=== PATIENT | male | born 1965 | race Caucasian/White ===

== ENCOUNTER 2020-05-23 10:41 | Day surgery (SDC) | payer OTHER, SELFPAY ==
[2020-03-20 10:56] VITALS: BMI 29.9
--- NOTE | 2020-03-25 09:36 | HO.ANESPROP2 ---
HPI - Anesthesia Eval Consult details Narrative: 55yo M for Colonoscopy [facility] Past Medical History Medical History Asthma Hepatitis History of prostate cancer Hx of irritable bowel syndrome Hx of radiation therapy Surgical History Surgical History H/O colonoscopy History of surgery on arm Hx of prostate biopsy Hx of right inguinal hernia repair Social History Social History Smoking Status: Current every day smoker Meds Allergies Allergy/AdvReac Type Severity Reaction Status Date / Time No Known Allergies Allergy Verified 03/20/20 11:02 Home Medications Medication Instructions Recorded Confirmed Type buprenorphine-naloxone [Suboxone] 1 film BUCCAL BID 03/20/20 03/20/20 History glecaprevir-pibrentasvir [Mavyret] 3 tab PO DAILY 03/20/20 03/20/20 History tadalafil 20 mg PO DAILY 03/20/20 03/20/20 History Exam Exam Date and Time: March 25, 2020 0936 Height,Weight and Vital Signs: Height 5 ft 7 in Weight 86.636 kg Assessment and Plan Assessment Anesthesia Assessment: Chart Reviewed
--- NOTE | 2020-05-21 14:19 | HO.ANESPROP2 ---
Documented by User: Salma Galvin 05/21/20 14:19 HPI - Anesthesia Eval Consult details Narrative: 55yo M for Colonoscopy [facility] Past Medical History Medical History Asthma Hepatitis History of prostate cancer Hx of irritable bowel syndrome Hx of radiation therapy Surgical History Surgical History H/O colonoscopy History of surgery on arm Hx of prostate biopsy Hx of right inguinal hernia repair Social History Social History Smoking Status: Current every day smoker Cigarettes Per Day: 5 Advance Directives Information Provided: No Meds Allergies Allergy/AdvReac Type Severity Reaction Status Date / Time No Known Allergies Allergy Verified 03/20/20 11:02 Home Medications Medication Instructions Recorded Confirmed Type glecaprevir-pibrentasvir [Mavyret] 3 tab PO DAILY 03/20/20 03/20/20 History tadalafil 20 mg PO DAILY 03/20/20 03/20/20 History lisinopril 1 tab PO DAILY 05/23/20 05/23/20 History methadone 50 mg PO DAILY 05/23/20 05/23/20 History Exam Exam Date and Time: May 21, 2020 1419 Height,Weight and Vital Signs: Height 5 ft 7 in Weight 86.636 kg Assessment and Plan Assessment Anesthesia Assessment: Chart Reviewed Documented by User: Minnie Kate 05/23/20 11:17 [facility] Past Medical History Medical History Asthma Hepatitis History of prostate cancer Hx of irritable bowel syndrome Hx of radiation therapy Surgical History Surgical History H/O colonoscopy History of surgery on arm Hx of prostate biopsy Hx of right inguinal hernia repair Social History Social History Smoking Status: Current every day smoker Cigarettes Per Day: 5 Advance Directives Information Provided: No Meds Allergies Allergy/AdvReac Type Severity Reaction Status Date / Time No Known Allergies Allergy Verified 03/20/20 11:02 Home Medications Medication Instructions Recorded Confirmed Type glecaprevir-pibrentasvir [Mavyret] 3 tab PO DAILY 03/20/20 03/20/20 History tadalafil 20 mg PO DAILY 03/20/20 03/20/20 History lisinopril 1 tab PO DAILY 05/23/20 05/23/20 History methadone 50 mg PO DAILY 05/23/20 05/23/20 History Exam Airway Mallampati Class: II TM Dist: >3cm Neck ROM: Full Assessment and Plan Assessment Anesthesia Assessment: Anesthesia Plan Discussed and Chart Reviewed Final Anesthetic Review NPO: Yes ASA Class: II Final Preanesthetic Review: No Changes in Pt Med Stat, Meds/Allgs Chart Reviewed, Consent Obtained/Reviewed and Anes Risks/Benef Reviewed Patient Risk: Low Procedure Risk: Low Assessment/Block/Sedation in SS: Assess/Block/Sedation-SS Anesthetic Plan Anesthetic Plan: MAC: Disposition: Standard PACU
[2020-05-23 10:54] VITALS: BP 157/100; PULSE 97; RESP 18; TEMP 36.6; O2SAT 98
[2020-05-23] MEDS: Lactated Ringers 1,000 ML 100 ML IVCONT (11:09)
--- NOTE | 2020-05-23 11:17 | MHC.SHP ---
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 Hep C ab + viral load neg since 2019 Relevant Family History (Specify if Yes): Yes Relevant Social History: Tobacco Use (5 or less) Present Medications: see Short Stay Collaborative assessment Medical History: Significant History (Prostate cancer,Hx tubular adenomas;hx of Hepatitis c) History of Previous Operations: No relevant previous surgery Allergies: Allergies Allergy/AdvReac Type Severity Reaction Status Date / Time No Known Allergies Allergy Verified 03/20/20 11:02 Review of Systems Sugical H&P ROS: Negative: Constitution, Cardiovascular, Respiratory and Gastrointestinal and Yes, Specify: Psychiatric (on methadone) Exam Surgical H&P Exam: Normal: HEENT, Normal: Heart, Normal: Lungs, Normal: Extremities and Normal: Abdomen Plan Diagnosis/Plan: Unchanged I have reviewed the history and physical and performed a pertinent physical examination on my patient. No changes have occurred unless specified.yes
[2020-05-23 12:31] VITALS: BP 122/82; PULSE 86; RESP 16; TEMP 36.2; O2SAT 95
--- NOTE | 2020-05-23 12:34 | PM.PROC ---
Brief Operative Note Date of procedure: 05/23/20 Pre-op diagnosis: hX MACHO TUBULAR ADENOMAS Procedure: COLONOSCOPY WITH EXCIS POLYPX2, CSPX1, BX ENDO MARKING. Anesthesia: MAC (MACEY GLEASON) Surgeon: Tran Murguia Pathology: other (CECAL, ? POLYP, BX RESIDUAL AREA) Condition: stable Disposition: PACU
[2020-05-23 12:46] VITALS: BP 154/99; RESP 17; O2SAT 97
--- NOTE | 2020-05-23 13:04 | HO.POSTANES ---
Post Anesthesia Evaluation Post Anesthesia Evaluation Vital Signs: Vital Signs Temp Pulse Resp BP Pulse Ox 05/23/20 12:46 17 154/99 H 97 05/23/20 12:31 97.1 F 86 16 122/82 95 05/23/20 10:54 97.8 F 97 18 157/100 H 98 Anesthesia: Monitored Mental Status: Awake Pain Control: Satisfactory Nausea/Vomiting: None Hydration: Adequate Anesthesia-Related Issues: No Anes. Related Issues
--- NOTE | 2020-05-25 12:22 | OP_ITS ---
SURGEON: Tran Murguia MD PREOPERATIVE DIAGNOSIS: The patient has a history of tubular adenomas. ESTIMATED BLOOD LOSS: Less than 10 mL. COMPLICATIONS: No complications. ANESTHESIA: Monitored. ASSISTANTS: No ward assistant. SPECIMENS: Specimens removed; cecal polyps x2, ascending colon polyp shreds, not clear that the polyp itself was retrieved and an additional biopsy in same area. POSTOPERATIVE DIAGNOSES: Colonic polyps, 2+ internal hemorrhoids. RIVET TAPPING MACHINE OPERATOR: Dr. Murguia. PROCEDURE PERFORMED: Colonoscopy with excisional polypectomy x2 with the use of the cold biopsy forceps, endo marking and cold snare polypectomy x1. Endo marking was done in the region of the ascending colon polyp. CONDITION: Postop, stable. FINDINGS: Digital rectal exam revealed no specific lesion. Video colonoscope was introduced without difficulty. It was navigated into the rectosigmoid, sigmoid, on up through descending, transverse, ascending colon down into the cecum. Prep was good. There was moderate amount of flushing and some residual fluid. Two polyps were identified in the cecum. These were removed. There was ascending colon polyp that was not retrieved. The suctioned fluid was submitted as a question of fragmented polyp. Adjacent to this, there was questionable serrated changes and this was biopsied. In the mid transverse colon, a polyp was seen, however despite the use of glucagon as well as re-looking at the area multiple times, this was not re-visualized, estimated size of this was 2 to 3 mm. Anorectal verge was clear. There were 2+ internal hemorrhoids noted. PLAN: This patient's repeat colonoscopy should be in 3 years. I would suggest a vigorous 2-day prep to clear out any fluid, and if spasm persists, the use of glucagon would be recommended as well. I will review the histological findings from the path report and make any appropriate adjustments. He will be either seen in followup by either Televisit or in-person. ANESTHESIOLOGISTS: Dr. Kate/Jb Escobar CRNA. GRAFT OR IMPLANTS: No grafts or implants. Tran Murguia MD MEN/MODL / [id number] ARSENIO
== END 2020-05-23 13:07 | disposition home or self-care (01) ==
PROVIDERS: PCP Internal Medicine; Visit Provider Internal Medicine Gastroenterology
PROC: 0DJD8ZZ Inspection of Lower Intestinal Tract, Via Natural or Artificial Opening Endoscopic (ICD-10-PCS; CPT 45378; principal; 2020-05-23 12:10)
DX: Z12.11 Encounter for screening for malignant neoplasm of colon (principal); Z86.010 Personal history of colon polyps; D12.0 Benign neoplasm of cecum; D12.2 Benign neoplasm of ascending colon; K64.8 Other hemorrhoids; J45.909 Unspecified asthma, uncomplicated; B19.20 Unspecified viral hepatitis C without hepatic coma; Z79.899 Other long term (current) drug therapy; F11.90 Opioid use, unspecified, uncomplicated; Z85.46 Personal history of malignant neoplasm of prostate; Z92.3 Personal history of irradiation; F17.210 Nicotine dependence, cigarettes, uncomplicated
CPT/HCPCS: 45385; 45380; 45381; 88305; J1610

== ENCOUNTER → 2020-06-06 10:34 | Outpatient (BNVA) | payer OTHER, SELFPAY | PROVIDERS: PCP Internal Medicine; Visit Provider Nurse Practitioner ==

== ENCOUNTER 2020-06-13 08:18 | Outpatient (REF) | payer OTHER, SELFPAY ==
[2020-06-13 09:05] LABS: MANUAL DIFF FLAG NO
[2020-06-13 09:09] LABS: Basophils Absolute Auto 0.1 X10*3/uL (0.0-0.2); Basophils Percent Auto 0.7 % (0-2); Eosinophils Absolute Auto 0.2 X10*3/uL (0.0-0.4); Eosinophils Percent Auto 2.3 % (0-4); Hematocrit 44.1 % (42-52); Hemoglobin 14.5 g/dl (14.0-18.0); Imm Gran Abs Auto 0.03 X10*3/uL (0.00-0.03); Imm Gran Pct Auto 0.3 % (0.0-0.4); Lymphocytes Absolute Auto 4.1 X10*3/uL (1.2-4.9); Lymphocytes Percent Auto 40.1 % (20-40); Mean Corpuscular HGB Conc 32.9 g/dl (31.0-36.0); Mean Corpuscular Hemoglobin 29.4 pg (27.0-33.0); Mean Corpuscular Volume 89.5 fL (80-98); Mean Platelet Volume 10.4 fL (9.4-12.4); Monocytes Absolute Auto 0.9 X10*3/uL (0.1-1.2); Neutrophils Absolute Auto 4.9 X10*3/uL (2.0-8.3); Neutrophils Percent Auto 47.6 % (45-73); Platelet Count 289 X10*3/uL (160-400); Red Blood Count 4.93 X10*6/uL (4.60-5.80); Red Cell Distribution Width 13.4 % (11.0-16.0); White Blood Count 10.3 X10*3/uL (4.8-10.8)
[2020-06-13 09:47] LABS: Alanine Aminotransferase 38 U/L (0-40); Albumin Level 4.6 g/dL (3.5-5.0); Alkaline Phosphatase 65 U/L (39-117); Anion Gap 13 (12-20); Aspartate Amino Transferase 33 U/L (5-37); Bilirubin Total 0.6 mg/dL (0.0-1.0); Blood Urea Nitrogen 20 mg/dL (9-16); Calcium 9.4 mg/dL (8.4-10.2); Carbon Dioxide 28 mmol/L (22-29); Chloride 104 mmol/L (96-108); Cholesterol 148 mg/dL; Estimated Glomerular Filt Rate > 60; Glucose Fasting 115 mg/dL (60-99); HDL Cholesterol 25 mg/dL; LDL Cholesterol Calculated 81 mg/dl; Potassium 4.2 mmol/l (3.3-5.1); Sodium 141 mmol/L (135-145); Total Protein 7.8 g/dL (6.5-8.0); Triglycerides 214 mg/dL
[2020-06-13 10:00] LABS: TSH reflex Free T4 1.45 mIU/mL (0.32-4.0)
[2020-06-13 11:01] LABS: Folate 7.7 ng/mL (> or = 4.0); Vitamin B12 411 pg/mL (200-900)
== END 2020-06-13 08:19 | disposition home or self-care (01) ==
LOC: HO.LAB 08:18
PROVIDERS: Visit Provider Internal Medicine
DX: E66.3 Overweight (principal); I10 Essential (primary) hypertension; R41.3 Other amnesia
CPT/HCPCS: 36415; 80053; 80061; 82607; 82746; 84443; 85025

== ENCOUNTER 2020-09-26 05:56 | Outpatient (REF) | payer OTHER, SELFPAY ==
[2020-09-26 07:09] LABS: Glucose Urine UA NEG (NEG); Leukocyte Esterase Urine NEG (NEG); Nitrite Urine NEG (NEG); Specific Gravity - Urine >= 1.030 (1.005-1.025); Urine Blood TRACE (NEG); Urine Ketones NEG (NEG); Urine Protein NEG (NEG-TRACE)
[2020-09-26 07:17] LABS: Appearance Urine CLEAR; Color Urine YELLOW
[2020-09-26 07:30] LABS: Mucus Urine 1+ /LPF; Squamous Epithelial Cell Urine TRACE /LPF; WBC Urine 0-2 /HPF (0-4)
[2020-09-26 08:26] LABS: PSA,Total (Free>4and<10) 1.17 ng/mL (0.00-4.00)
== END 2020-09-26 05:57 | disposition home or self-care (01) ==
LOC: HO.LAB 05:56
PROVIDERS: PCP Internal Medicine; Visit Provider Urology
DX: Z12.5 Encounter for screening for malignant neoplasm of prostate (principal); C61 Malignant neoplasm of prostate; I10 Essential (primary) hypertension
CPT/HCPCS: 36415; 81001; 81003; 84153

== ENCOUNTER → 2020-12-20 10:24 | Outpatient (BNVA) | payer OTHER, SELFPAY | PROVIDERS: Visit Provider Urology ==

== ENCOUNTER → 2021-02-19 10:55 | Outpatient (BNVA) | payer OTHER, SELFPAY | PROVIDERS: PCP Internal Medicine; Referring Provider Internal Medicine; Visit Provider Surgery | DX: R10.31 Right lower quadrant pain (principal) | CPT/HCPCS: 99212 ==

== ENCOUNTER 2021-02-19 11:37 | Outpatient (REF) | payer OTHER, SELFPAY | END 2021-02-19 11:38 | disposition home or self-care (01) | LOC: HO.LAB 11:37 | PROVIDERS: Visit Provider Internal Medicine | DX: Z20.822 Contact with and (suspected) exposure to COVID-19 (principal) | CPT/HCPCS: C9803; U0003; U0005 ==

== ENCOUNTER 2021-03-20 08:38 | Outpatient (REF) | payer OTHER, SELFPAY | END 2021-03-20 08:39 | disposition home or self-care (01) | LOC: HO.CT 08:38 | PROVIDERS: PCP Internal Medicine; Visit Provider Surgery | DX: Z13.89 Encounter for screening for other disorder (principal) ==

== ENCOUNTER 2021-03-21 08:44 | Outpatient (REF) | payer OTHER, SELFPAY ==
--- NOTE | ~2021-03-21 | CT_ITS ---
EXAMINATION: CT ABDOMEN AND PELVIS WITHOUT CONTRAST CLINICAL INFORMATION: Right lower quadrant pain COMPARISON: Previous CT of the abdomen and pelvis February 2013 TECHNIQUE: Multidetector volumetric imaging was performed from the superior aspect of the liver through the pubic symphysis. Sagittal and coronal reformatted images were obtained on the technologist's workstation. This CT examination was performed using dose optimization techniques as appropriate, variously including the following: *Automated exposure control *Adjustment of mA and/or kV according to patient size (this includes techniques or standardized protocols for targeted exams where dose is matched to indication/reason for exam; i.e. extremities or head) *Use of iterative reconstruction technique DLP: 522 mGy-cm FINDINGS: LUNG BASES: The visualized lung bases are unremarkable. LIVER, GALLBLADDER, AND BILIARY TREE: The liver is normal in size, shape, and attenuation. No focal hepatic lesion or biliary ductal dilatation is present. The gallbladder is unremarkable with no evidence of radiopaque gallstones, gallbladder wall thickening, or obvious pericholecystic inflammatory changes. PANCREAS: Unremarkable. SPLEEN: Unremarkable. ADRENAL GLANDS: Unremarkable. KIDNEYS AND URETERS: The kidneys are normal in size, shape, and attenuation. No hydronephrosis, hydroureter, or calculi seen. No perinephric stranding. BLADDER: There may be mild diffuse bladder wall thickening. Bladder is otherwise unremarkable. GASTROINTESTINAL TRACT: There is diverticulosis of the colon. No evidence of diverticulitis is seen. The small and large bowel are otherwise unremarkable. The appendix is unremarkable. There is trace ascites seen in the right abdomen inferior to the liver. ABDOMINAL WALL: No significant hernia is appreciated. LYMPH NODES: Normal. VASCULAR: Unremarkable. PELVIC VISCERA: There are radiation seeds in the prostate gland. No pelvic mass or adenopathy is seen. There may be a small right hydrocele. OSSEOUS STRUCTURES: There are degenerative changes of the spine. There is a small sclerotic lesion in the right pubic symphysis and left femoral head that are stable from 2012 and probably represent bone islands. CT/CT abdomen pelvis wo con IMPRESSION: Radiation seeds in the prostate gland. Mild diffuse bladder wall thickening. Mild diverticulosis of the colon. No evidence of diverticulitis. Normal-appearing appendix. Question right hydrocele.
== END 2021-03-21 08:45 | disposition home or self-care (01) ==
LOC: HO.CT 08:44
PROVIDERS: PCP Internal Medicine; Visit Provider Surgery
DX: R10.31 Right lower quadrant pain (principal)
CPT/HCPCS: 74176

== ENCOUNTER → 2021-04-09 08:02 | Outpatient (BNVA) | payer OTHER, SELFPAY | PROVIDERS: PCP Internal Medicine; Referring Provider Internal Medicine; Visit Provider Surgery | DX: R10.31 Right lower quadrant pain (principal) | CPT/HCPCS: 99212 ==

== ENCOUNTER 2022-01-28 07:12 | Outpatient (REF) | payer MEDICARE, MEDICAID, SELFPAY ==
[2022-01-28 07:24] LABS: MANUAL DIFF FLAG NO
[2022-01-28 07:41] LABS: Basophils Absolute Auto 0.1 X10*3/uL (0.0-0.2); Basophils Percent Auto 0.6 % (0-2); Eosinophils Absolute Auto 0.2 X10*3/uL (0.0-0.4); Eosinophils Percent Auto 1.9 % (0-4); Hematocrit 42.7 % (42.0-52.0); Hemoglobin 14.5 g/dl (14.0-18.0); Imm Gran Abs Auto 0.04 X10*3/uL (0.00-0.03); Imm Gran Pct Auto 0.4 % (0.0-0.4); Lymphocytes Absolute Auto 3.1 X10*3/uL (1.2-4.9); Lymphocytes Percent Auto 33.5 % (20-40); Mean Corpuscular Hemoglobin 29.7 pg (27.0-33.0); Mean Corpuscular Volume 87.5 fL (80.0-98.0); Mean Platelet Volume 9.4 fL (9.4-12.4); Monocytes Absolute Auto 0.8 X10*3/uL (0.1-1.2); Monocytes Percent Auto 8.7 % (2-11); Neutrophils Absolute Auto 5.1 x10*3/uL (2.0-8.3); Neutrophils Percent Auto 54.9 % (45-73); Platelet Count 277 X10*3/uL (160-400); Red Blood Count 4.88 X10*6/uL (4.60-5.80); Red Cell Distribution Width 13.5 % (11.0-16.0); White Blood Count 9.3 X10*3/uL (4.8-10.8)
[2022-01-28 08:06] LABS: Alanine Aminotransferase 58 U/L (0-40); Albumin Level 4.4 g/dL (3.5-5.0); Alkaline Phosphatase 78 U/L (39-117); Anion Gap 16 (12-20); Aspartate Amino Transferase 44 U/L (5-37); Bilirubin Total 0.5 mg/dL (0.0-1.0); Blood Urea Nitrogen 14 mg/dL (9-16); Calcium 9.6 mg/dL (8.4-10.2); Carbon Dioxide 27 mmol/L (22-29); Chloride 102 mmol/L (96-108); Cholesterol 159 mg/dL; Estimated Glomerular Filt Rate > 60; Glucose Fasting 100 mg/dL (60-99); HDL Cholesterol 23 mg/dL; LDL Cholesterol Calculated 83 mg/dl; Potassium 3.9 mmol/L (3.3-5.1); Sodium 141 mmol/L (135-145); Total Protein 7.7 g/dL (6.5-8.0); Triglycerides 269 mg/dL
[2022-01-28 08:20] LABS: Prostate Specific Antigen 1.46 ng/mL (<0.05-4.0); TSH reflex Free T4 3.71 uIU/mL (0.32-4.0); Vitamin D 25-OH Total 34.3 ng/mL (>30)
[2022-01-28 08:56] LABS: Appearance Urine Clear; Color Urine Yellow; Glucose Urine UA Negative (Negative); Leukocyte Esterase Urine Negative (Negative); Nitrite Urine Negative (Negative); Specific Gravity - Urine 1.025 (1.005-1.025); UMIC TRIGGER UACC YES; Urine Blood Trace (Negative); Urine Ketones Negative (Negative); Urine Protein Negative (Neg-Trace)
[2022-01-28 09:02] LABS: Bacteria Urine None Seen (None Seen); Hyaline Casts Urine 0-2 /LPF (0-2); Squamous Epithelial Cell Urine 0-2 /HPF (0-2); WBC Urine 0-5 /HPF (0-5)
== END 2022-01-28 07:13 | disposition home or self-care (01) ==
LOC: HO.LAB 07:12
PROVIDERS: PCP Internal Medicine; Visit Provider Internal Medicine
DX: Z00.00 Encounter for general adult medical examination without abnormal findings (principal); Z12.5 Encounter for screening for malignant neoplasm of prostate; I10 Essential (primary) hypertension; N40.0 Benign prostatic hyperplasia without lower urinary tract symptoms; E78.00 Pure hypercholesterolemia, unspecified; E55.9 Vitamin D deficiency, unspecified
CPT/HCPCS: 36415; 80053; 80061; 81001; 81003; 82306; 84153; 84443; 85025

== ENCOUNTER 2022-08-03 07:50 | Outpatient (REF) | payer OTHER, SELFPAY ==
[2022-08-03 09:24] LABS: Appearance Urine Clear; Color Urine Yellow; Glucose Urine UA Negative (Negative); Leukocyte Esterase Urine Negative (Negative); Nitrite Urine Negative (Negative); PH 6.5 (5.0-9.0); Urine Blood Negative (Negative); Urine Ketones Negative (Negative); Urine Protein Negative (Neg-Trace)
== END 2022-08-03 07:51 | disposition home or self-care (01) ==
LOC: HO.LAB 07:50
PROVIDERS: PCP Internal Medicine; Visit Provider Internal Medicine
DX: Z00.00 Encounter for general adult medical examination without abnormal findings (principal); I10 Essential (primary) hypertension
CPT/HCPCS: 81003

== ENCOUNTER 2022-08-18 12:54 | Outpatient (REF) | payer OTHER, SELFPAY ==
--- NOTE | ~2022-08-18 | US_ITS ---
EXAMINATION: US SCROTUM CLINICAL INFORMATION: Swelling of right testicle. History of prostate cancer. COMPARISON: None available. TECHNIQUE: A sonogram of the scrotum was performed assessing garcia-scale appearance and color Doppler flow. Spectral Doppler analysis of the arterial and venous flow were performed in the testes bilaterally. FINDINGS: RIGHT: Right testicle measures 4.3 x 2.6 x 2.7 cm, volume 15.9 mL. No suspicious focal testicular parenchymal lesions are visualized. There is a 1 mm echogenic focus consistent with calculus. Spectral Doppler analysis of the arterial and venous flow is normal in the right testis. Right epididymal head is is not identified. No right varicocele is seen. Right epididymal Doppler flow is normal. Large right hydrocele present. A scrotal jacquelyn is present. LEFT: Left testicle measures 4.2 x 2.5 x 3.0 cm, volume 16.4 mL. No focal testicular parenchymal lesions are visualized. Spectral Doppler analysis of the arterial and venous flow is normal in the left testis. Left epididymal head is normal in size. No left hydrocele or varicocele is seen. Left epididymal Doppler flow is normal. Appendix testis noted. US/US scrotum IMPRESSION: Large right hydrocele.
== END 2022-08-18 12:55 | disposition home or self-care (01) ==
LOC: HO.US 12:54
PROVIDERS: PCP Internal Medicine; Visit Provider Internal Medicine
DX: N50.89 Other specified disorders of the male genital organs (principal)
CPT/HCPCS: 76870

== ENCOUNTER 2023-02-26 10:37 | Outpatient (AMB) | payer OTHER, SELFPAY ==
[2023-02-26 10:55] VITALS: BP 148/94; PULSE 81; RESP 17; O2SAT 98; BMI 25.5
--- NOTE | 2023-02-26 10:55 | MHC.PC.OV ---
Vital Signs 02/26/23 10:55 Height 5 ft 7 in Weight 163 lb BMI 25.5 BP 148/94 H Blood Pressure Location Lt brachial Position Sitting Respiration 17 Pulse 81 Pulse Source Pulse Oximeter Pulse Oximetry (%) 98 Oxygen Delivery Method Room Air Intake Visit Reasons: PE Intake Note: Patient is here today for a physical. 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: No Accompanied by: Spouse Allergies No Known Allergies Allergy (Verified 02/26/23 11:22) Medication List - Last Reconciled 02/26/23 by Bartolo Dumont MD lisinopril 5 mg PO DAILY 90 days methadone 50 mg PO DAILY Tobacco use date assessed: 08/04/22 Dental Screening Dental Screen Date: 02/26/23 Did you have a dental visit in the last 12 months?: Yes Did you have a dental problem in the last 6 months where you did not have access to dental care?: No Was dental information given to patient?: Patient has dentist HPI PE HPI Details Patient comes in today for his annual physical examination States that he has been experiencing a lot of recurrent diffuse abdominal pain lately Has been seeing urology in [place] regularly for follow up of his prostate cancer and he has been reportedly advised recently that his prostate cancer may have recurred and is being sent for a repeat PET scan, which is presently still awaiting scheduling He denies any nausea or vomiting; relates (+) epigastric pain especially in the morning when he wakes up and notes that these will ease up slightly only after he drinks some coffee States that he always feel that he does not have much of an appetite and usually does not eat much during mealtimes He denies any constipation even though he is on Methadone daily - denies any change in bowel habits lately that may be related to his abdominal pain He denies any headaches or dizziness; denies any fever or sore throat His states that he's had a recurrent cough for over a week now Notes that his cough seem worse at night and he admits to coughing up some thick whitish phlegm at times, and also has some chest congestion occasionally but denies any SOB or chest pains He continues to smoke but he states that he smokes only a few sticks a day, sometimes just 1 cigarette daily He last had his colonoscopy done in May [address] Murguia and was advised then that he should get this rechecked in 3 years [facility] Medical History (Updated 02/26/23 @ 12:33 by Bartolo Dumont MD) Right groin pain Memory loss Overweight Smoker History of hepatitis C History of substance abuse Recurrent prostate cancer (~2019) Benign essential hypertension Hx of radiation therapy History of prostate cancer Hx of irritable bowel syndrome Hepatitis Asthma Surgical History (Updated 02/26/23 @ 12:20 by Bartolo Dumont MD) History of surgery on arm Hx of prostate biopsy Hx of right inguinal hernia repair H/O colonoscopy Family History Brother Prostate cancer Mother Diabetes Social History Housing: Apartment Alcohol intake: current Alcohol intake frequency: holidays/special occasions only Patient Tobacco Use Status: Current everyday Tobacco user Tobacco use type: Cigarette Cigarettes Per Day: 3 e-Cigarette/Vaping Use: Never Used Substance Use Type: Marijuana service: No Current occupational status: disabled Cognitive needs: No Hearing needs: Yes Vision needs: Yes Questionnaire PHQ-9 Over the last 2 weeks, how often have you been bothered by any of the following problems? Depression Screening Interpretation: Negative Depression Screening Done: Yes Source: Developed by Drs. Jamal Grove, Antionette Baca, Compa Diaz and colleagues, with an educational nikki from [employer]. Thrive Questionnaire Date Thrive assessed: 08/04/22 Currently or been in a relationship where the following occur: no concerns reported MERCEDES-7 AMB Questionnaire MERCEDES-7 Date MERCEDES - 7 assessed: 08/04/22 Source: Developed by Drs. Jamal Grove, Antionette Baca, Compa Diaz and colleagues, with an educational nikki from [employer]. Review of Systems Const Denies chills, Reports fatigue, Denies fever(s), Denies headache(s), Denies malaise and Denies weakness Eyes Denies blurry vision, Denies change in vision, Denies irritation and Denies itchy eyes ENT Denies dysphagia, Denies dizziness, Denies otalgia, Denies headache(s), Denies nasal congestion, Denies neck pain, Denies odynophagia and Denies sore throat Card Denies chest pain, Denies rapid heart rate, Denies irregular heart rhythm, Denies palpitations and Denies dyspnea Resp Reports chest congestion (occasionally), Reports cough (recurrent for the past week or so), Denies hemoptysis, Denies pain on inspiration, Denies pain with cough, Denies dyspnea and Denies wheezing GI Reports abdominal pain (diffuse lately; over epigastric area in AM (see HPI)), Reports bloating (at times), Denies constipation, Denies dysphagia, Denies heartburn, Denies diarrhea, Denies nausea, Denies odynophagia and Denies vomiting Denies hematuria, Denies difficulty urinating, Denies dysuria, Denies urinary frequency and Denies urinary urgency Musc Denies back pain, Denies arthralgias, Denies joint swelling, Denies muscle weakness and Denies neck pain Skin/Breast Denies change in pigmentation, Denies lesions, Denies rash and Denies unusual bruising Neuro Denies dizziness, Denies headache(s), Denies paresthesias and Denies weakness Endo Reports fatigue and Denies palpitations Aller/Immun Denies itchy eyes and Denies wheezing Physical exam (Primary Care) Vital Signs: Last Vital Signs Pulse 81 02/26/23 10:55 Resp 17 02/26/23 10:55 BP 148/94 H 02/26/23 10:55 Pulse Ox 98 02/26/23 10:55 Oxygen Delivery Method Room Air 02/26/23 10:55 BMI result Body Mass Index 25.5 Tobacco/Smoking Status: Tobacco use Status Tobacco use date assessed 08/04/22 02/26/23 10:59 Patient Tobacco Use Status Current everyday Tobacco 02/26/23 10:59 Tobacco use type Cigarette 02/26/23 10:59 e-Cigarette/Vaping Use Never Used 02/26/23 10:59 Depression Screening Interpretation: Negative Thrive Assessment: Date of Thrive Assessment Date Thrive assessed 08/04/22 02/26/23 10:59 Currently or been in a relationship where the following occur: no concerns reported Const General: no acute distress, alert and awake Orientation/consciousness: patient oriented x3 HENMT Head: Yes normocephalic and Yes atraumatic Ears: external ears normal, TM's normal bilaterally and EAC's normal General nose exam: No nasal discharge present Face and sinus: Yes normal facial exam and Yes sinuses nontender Teeth and gingiva: dentition normal Throat: Yes posterior oropharynx normal and Yes tonsils normal (no TP congestion) Eyes Eyelids: Yes eyelids normal Conjunctivae: conjunctivae normal Pupils: Equal, round and reactive pupils present EOM: EOMs intact bilaterally Neck Neck: Yes no lymphadenopathy and Yes supple Thyroid: Thyroid normal Resp Auscultation: no crackles, no rales, rhonchi (scattered) throughout, no wheezes and diminished lung sounds (slightly) bilateral Cardio Rate: regular rate Rhythm: regular rhythm Heart sounds: no murmurs GI Palpation (GI): Soft to palpation, Tenderness to palpation present (GI) (mild, diffuse), no guarding, not rigid, No hepatosplenomegaly present and No Rebound tenderness present Auscultation: normal bowel sounds General: Yes no CVA tenderness Back/Spine/Pelvis Back: no CVA tenderness Thoracic/Lumbar Spine: lumbar spinal tenderness (mild) Skin Rashes: no rashes Neuro General: patient oriented x3, moves all extremities, no focal motor deficits and CN's II-XI intact bilaterally Cranial nerves: Yes Equal, round and reactive pupils present Cognition (Neuro): normal cognition Gait exam (Neuro): Normal gait present Extrem General: Yes no clubbing, cyanosis or edema Assessment and Plan Assessment & Plan (1) Annual physical exam: Code(s): Z00.00 - Encounter for general adult medical examination without abnormal findings Plan: Check labs (2) Abdominal pain: Code(s): R10.9 - Unspecified abdominal pain Qualifiers: Abdominal location: generalized Qualified Code(s): R10.84 - Generalized abdominal pain Plan: Offered to send him for abdominal US for further evaluation but states that he is currently being scheduled for a PET scan by urology for follow up of his prostate cancer and was reportedly advised recently that there is a good likelihood that his prostate cancer has recurred or spread; would like to hold off on abdominal US at this time Will send him for some additional labs then for further evaluation of his abdominal pain He is advised that his recent epigastric pains in the morning sounds suggestive of some gastritis - will at least try him on some Omeprazole 20 mg QD (3) Recurrent prostate cancer: Onset Date: ~2018 Code(s): C61 - Malignant neoplasm of prostate Plan: Used to see Dr. Kodi Parks but is now seeing [facility] in [place] and Dr. Sadler at [facility] for continuing follow up and management He is currently awaiting scheduling for a repeat PET scan and there are concerns that his prostate cancer may have recurred (4) Elevated LFTs: Code(s): R79.89 - Other specified abnormal findings of blood chemistry Plan: His most recent labs done back in January 2022 still showed elevated LFTs Patient states that he does not drink alcohol Will have him recheck his labs and LFTs JULISA for follow up (5) Cough: Code(s): R05.9 - Cough, unspecified Qualifiers: Cough type: acute Qualified Code(s): R05.1 - Acute cough Plan: He is advised that his lung exam today sounds like he may have bronchitis or COPD exacerbation Will send him for chest x-rays for further evaluation and start him empirically for now on Azithromycin QD x 5 days (6) Benign essential hypertension: Code(s): I10 - Essential (primary) hypertension Plan: Reinforced low sodium diet - goal is systolic BP of 120 mm or less Continue Lisinopril 5 mg QD (7) History of hepatitis C: Comment: S/P Tx with Mavyret Code(s): Z86.19 - Personal history of other infectious and parasitic diseases Plan: S/P Tx with Mavyret Follow up with Dr. Stahl as scheduled for continuing surveillance and management (8) History of substance abuse: Code(s): F19.11 - Other psychoactive substance abuse, in remission Plan: Continue Methadone 50 mg QD Follow up with the Methadone clinic as scheduled (9) Smoker: Code(s): F17.200 - Nicotine dependence, unspecified, uncomplicated Plan: Counseled again on smoking cessation (10) Overweight: Code(s): E66.3 - Overweight Plan: Reinforced diet/exercise as tolerated/lose weight (11) Colon cancer screening: Code(s): Z12.11 - Encounter for screening for malignant neoplasm of colon Plan: His last colonoscopy was done by Dr. Murguia back in May 2020 and was advised to get this repeat in 3 years - will be due in May 2023 Will refer him back to GI for repeat colonoscopy, to be scheduled on or after May 2023 Plan Follow up in 4 months Orders: Orders Complete Blood Count Auto Diff Today I10 - Essential (primary) hypertension, R10.9 - Unspecified abdominal pain, Z00.00 - Encounter for general adult medical examination without abnormal findings Comprehensive Candler. Panel Fast Today E78.00 - Pure hypercholesterolemia, unspecified, R10.9 - Unspecified abdominal pain, Z00.00 - Encounter for general adult medical examination without abnormal findings TSH reflex Free T4 Today E78.00 - Pure hypercholesterolemia, unspecified, R10.9 - Unspecified abdominal pain, Z00.00 - Encounter for general adult medical examination without abnormal findings Erythrocyte Sedimentation Rate Today R10.9 - Unspecified abdominal pain Lipid Panel Today E78.00 - Pure hypercholesterolemia, unspecified, R10.9 - Unspecified abdominal pain, Z00.00 - Encounter for general adult medical examination without abnormal findings UA CC w/rflx Micro + Cult Today R10.9 - Unspecified abdominal pain, R30.0 - Dysuria, Z00.00 - Encounter for general adult medical examination without abnormal findings Vitamin D 25-OH Total Today E55.9 - Vitamin D deficiency, unspecified, R10.9 - Unspecified abdominal pain, Z00.00 - Encounter for general adult medical examination without abnormal findings Lipase Today R10.9 - Unspecified abdominal pain XR chest 2V Today J98.8 - Other specified respiratory disorders, R05.9 - Cough, unspecified Referrals Gastroenterology Referral Z12.11 - Encounter for screening for malignant neoplasm of colon Medications: New azithromycin take 500 mg today (day 1), then 250 mg for 4 days (days 2-5) PO 6 tabs 0RF omeprazole 20 mg PO DAILY 30 days 30 caps 3RF Coding Level of Care Code Est Pt Prev Care 40-64y(33811) Diagnoses Annual physical exam Z00.00 Generalized abdominal pain R10.84 Abdominal location: generalized Recurrent prostate cancer C61 Elevated LFTs R79.89 Acute cough R05.1 Cough type: acute Benign essential hypertension I10 History of hepatitis C Z86.19 History of substance abuse F19.11 Smoker F17.200 Overweight E66.3 Colon cancer screening Z12.11
== END 2023-02-26 11:37 | disposition home or self-care (01) ==
PROVIDERS: PCP Internal Medicine; Visit Provider Internal Medicine
DX: Z00.00 Encounter for general adult medical examination without abnormal findings (principal); C61 Malignant neoplasm of prostate; F19.11 Other psychoactive substance abuse, in remission; R10.84 Generalized abdominal pain; R79.89 Other specified abnormal findings of blood chemistry; R05.1 Acute cough; I10 Essential (primary) hypertension; Z86.19 Personal history of other infectious and parasitic diseases; F17.200 Nicotine dependence, unspecified, uncomplicated; E66.3 Overweight
CPT/HCPCS: 99396

== ENCOUNTER 2023-05-19 08:47 | Outpatient (REF) | payer OTHER, SELFPAY ==
[2023-05-19 10:32] LABS: Prostate Specific Antigen 2.24 ng/mL (<0.05-4.0)
== END 2023-05-19 08:48 | disposition home or self-care (01) ==
LOC: HO.LAB 08:47
PROVIDERS: PCP Internal Medicine; Visit Provider Physician Assistant
DX: C61 Malignant neoplasm of prostate (principal); Z12.5 Encounter for screening for malignant neoplasm of prostate
CPT/HCPCS: 36415; 84153

== ENCOUNTER 2023-07-01 10:43 | Outpatient (AMB) | payer OTHER, SELFPAY ==
[2023-07-01 10:45] VITALS: BP 138/86; PULSE 71; O2SAT 98; BMI 26.3
--- NOTE | 2023-07-01 10:45 | A.OFFPC_ITS ---
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 Accompanied by: Self / Same As Patient Allergies No Known Allergies Allergy (Verified 07/01/23 11:00) Medication List - Last Reconciled 07/01/23 by Bartolo Dumont MD lisinopril 5 mg PO DAILY 90 days methadone 50 mg PO DAILY omeprazole 20 mg PO DAILY 30 days Tobacco use date assessed: 07/01/23 Dental Screening Dental Screen Date: 07/01/23 Did you have a dental visit in the last 12 months?: No Did you have a dental problem in the last 6 months where you did not have access to dental care?: No Was dental information given to patient?: No HPI HTN, abdominal pain, prostate CA HPI Details Patient comes in today for his follow up visit States that he is still experiencing recurrent diffuse abdominal pain lately Relates that his repeat PET scan done a couple of months ago showed a recurrence of his prostate cancer He has been seeing urology in [place] regularly for follow up and treatment of his prostate cancer but he is now requesting for a referral to see Dr. Lopez here at [facility] instead He denies any nausea or vomiting; relates that his previous epigastric pain in the morning has improved a lot since he was started on Omeprazole a few months ago States that he still does not have any appetite and often does not eat much during mealtimes He denies any constipation even though he is on Methadone daily - denies any change in bowel habits lately that may be related to his abdominal pain He denies any headaches or dizziness; denies any fever or sore throat Denies any chest pains, no SOB but his states that he still coughs every now and then and coughs up thick whitish phlegm at times He was sent for labs and chest x-rays at his last appointment but he admitted that he never got any of them done He also needs his Lisinopril and Omeprazole Rx refilled PFSH Medical History Right groin pain Memory loss Overweight Smoker History of hepatitis C History of substance abuse Recurrent prostate cancer (~2019) Benign essential hypertension Hx of radiation therapy History of prostate cancer Hx of irritable bowel syndrome Hepatitis Asthma Surgical History History of surgery on arm Hx of prostate biopsy Hx of right inguinal hernia repair H/O colonoscopy Family History Brother Prostate cancer Mother Diabetes Social History Housing: Apartment Alcohol intake: current Alcohol intake frequency: holidays/special occasions only Patient Tobacco Use Status: Current everyday Tobacco user Tobacco use type: Cigarette Cigarettes Per Day: 3 e-Cigarette/Vaping Use: Never Used Substance Use Type: Marijuana service: No Current occupational status: disabled Cognitive needs: No Hearing needs: Yes Vision needs: Yes Questionnaire PHQ-9 Over the last 2 weeks, how often have you been bothered by any of the following problems? 1. Little interest or pleasure in doing things: not at all 2. Feeling down, depressed, or hopeless: not at all 3. Trouble falling or staying asleep, or sleeping too much: not at all 4. Feeling tired or having little energy: not at all 5. Poor appetite or overeating: not at all 6. Feeling bad about yourself - or that you are a failure or have let yourself or your family down: not at all 7. Trouble concentrating on things, such as reading the newspaper or watching television: not at all 8. Moving or speaking so slowly that other people could have noticed. Or the opposite - being so fidgety or restless that you have been moving around a lot more than usual: not at all 9. Thoughts that you would be better off or of hurting yourself in some way: not at all Total score: 0 Depression Screening Interpretation: Negative Depression Screening Done: Yes [id number] - PHQ-9 Billing: Yes Source: Developed by Drs. Jamal Grove, Antionette Baca, Compa Diaz and colleagues, with an educational nikki from [employer]. Thrive Questionnaire Date Thrive assessed: 07/01/23 I am a: Patient What is your living situation today?: I have a steady place to live Within the past 12 months, did the food you bought not last and you didn't have the money to get more?: Never true Within the past 12 months, did you worry whether your food would run out before you got money to buy more?: Never true Do you have trouble paying for medicines?: No Do you have trouble getting transportation to medical appointments?: No Do you have trouble paying your heating and electricity bill?: No Do you have trouble taking care of your child, family member or friend?: No Do you have trouble with day-to-day activities such as bathing, preparing meals, shopping, managing finances, etc.?: No Are you currently unemployed and looking for a job?: No Are you interested in more education?: No Please select the resources that you would like help with: None Currently or been in a relationship where the following occur: no concerns reported THRIVE Score: 0 AUDIT C Alcohol Use Questionnaire (AUDIT-C) 1. How often do you have a drink containing alcohol?: Never 3. How often do you have six or more drinks on one occasion?: Never Total Score: 0 Score Reviewed/Action Taken: Yes MERCEDES-7 AMB Questionnaire MERCEDES-7 Date MERCEDES - 7 assessed: 07/01/23 Feeling nervous, anxious, or on edge: 0 = Not at all Not being able to stop or control worryin = Not at all Worrying too much about different things: 0 = Not at all Trouble relaxin = Not at all Being so restless that it is hard to sit still: 0 = Not at all Becoming easily annoyed or irritable: 0 = Not at all Feeling afraid as if something awful might happen: 0 = Not at all Total MERCEDES-7 score (0-4 normal; 5-9 mild; 10-14 moderate; 15-21 severe): 0 Source: Developed by Drs. Jamal Grove, Antionette Baca, Compa Diaz and colleagues, with an educational nikki from [employer]. Review of Systems Const Denies chills, Reports fatigue, Denies fever(s), Denies headache(s) and Reports poor appetite ENT Denies dysphagia, Denies dizziness, Denies otalgia, Denies headache(s), Denies neck pain, Denies odynophagia and Denies sore throat Card Denies chest pain, Denies rapid heart rate, Denies irregular heart rhythm, Denies palpitations and Denies dyspnea Resp Denies chest congestion, Reports cough (on and off; coughs up thick whitish phlegm at times), Denies pain with cough, Denies dyspnea and Denies wheezing GI Denies abdominal pain, Denies constipation, Denies dysphagia, Denies heartburn, Denies diarrhea, Denies nausea, Denies odynophagia and Denies vomiting Denies hematuria, Denies difficulty urinating, Denies dysuria, Denies urinary frequency and Denies urinary urgency Musc Denies back pain, Denies arthralgias and Denies neck pain Skin/Breast Denies lesions and Denies rash Neuro Denies dizziness, Denies headache(s) and Denies paresthesias Endo Reports fatigue and Denies palpitations Aller/Immun Denies wheezing Physical exam (Primary Care) Vital Signs: Last Vital Signs Pulse 71 07/01/23 10:45 BP 138/86 07/01/23 10:45 Pulse Ox 98 07/01/23 10:45 Oxygen Delivery Method Room Air 07/01/23 10:45 BMI result Body Mass Index 26.3 Tobacco/Smoking Status: Tobacco use Status Tobacco use date assessed 07/01/23 07/01/23 10:52 Patient Tobacco Use Status Current everyday Tobacco 07/01/23 10:52 Tobacco use type Cigarette 07/01/23 10:52 e-Cigarette/Vaping Use Never Used 07/01/23 10:52 PHQ-9: PHQ-9 Score PHQ-9: Total score 0 07/01/23 10:52 Depression Screening Interpretation: Negative Thrive Assessment: Date of Thrive Assessment Date Thrive assessed 07/01/23 07/01/23 10:52 Currently or been in a relationship where the following occur: no concerns reported Const General: no acute distress and alert HENMT Ears: TM's normal bilaterally and EAC's normal Throat: Yes posterior oropharynx normal and Yes tonsils normal (no TP congestion) Neck Neck: Yes no lymphadenopathy and Yes supple Thyroid: Thyroid normal Resp Auscultation: no rales, rhonchi (scattered) throughout, no wheezes and diminished lung sounds (slightly) bilateral Cardio Rate: regular rate Rhythm: regular rhythm Heart sounds: no murmurs GI Palpation (GI): Soft to palpation and nontender Auscultation: normal bowel sounds General: Yes no CVA tenderness Back/Spine/Pelvis Back: no CVA tenderness Thoracic/Lumbar Spine: lumbar spinal tenderness (mild) Skin Rashes: no rashes Extrem General: Yes no clubbing, cyanosis or edema Assessment and Plan Assessment & Plan (1) Abdominal pain: Code(s): R10.9 - Unspecified abdominal pain Qualifiers: Abdominal location: unspecified location Qualified Code(s): R10.9 - Unspecified abdominal pain Plan: Patient was sent for some labs then for further evaluation at his last visit but he never got them done - advised to get these done JULISA (lab orders are updated) He is advised that his previous epigastric pains in the morning are suggestive of gastritis - he was started on Omeprazole 20 mg QD and states that the Omeprazole has been helping a lot although he has been experiencing more of a diffuse and vague pain / pressure / bloating of his stomach lately that are likely more due to his prostate cancer (2) Recurrent prostate cancer: Onset Date: ~2018 Code(s): C61 - Malignant neoplasm of prostate Plan: Used to see Dr. Kodi Parks and more recently was going to [facility] in [place] and Dr. Sadler at [facility] for continuing follow up and management States that his repeat PET scan done a couple of months ago revealed (+) recurrence of his prostate cancer He is now requesting for a referral to see Dr. Lopez here at [facility] instead - referral done (3) Elevated LFTs: Code(s): R79.89 - Other specified abnormal findings of blood chemistry Plan: His most recent labs done back in January 2022 still showed elevated LFTs Patient states that he does not drink alcohol Will have him recheck his labs and LFTs JULISA for follow up - his previous lab orders are updated and he can go and get these done right away (4) Cough: Code(s): R05.9 - Cough, unspecified Qualifiers: Cough type: acute Qualified Code(s): R05.1 - Acute cough Plan: He is again being sent for chest x-rays for further evaluation States that his previous chest symptoms have improved somewhat with the empiric Abx that he was started on at his last visit but he unfortunately continues to smoke (5) Benign essential hypertension: Code(s): I10 - Essential (primary) hypertension Plan: Reinforced low sodium diet - goal is systolic BP of 120 mm or less Continue Lisinopril 5 mg QD (6) History of hepatitis C: Comment: S/P Tx with Mavyret Code(s): Z86.19 - Personal history of other infectious and parasitic diseases Plan: S/P Tx with Mavyret Follow up with Dr. Stahl as scheduled for continuing surveillance and management (7) History of substance abuse: Code(s): F19.11 - Other psychoactive substance abuse, in remission Plan: Continue Methadone 50 mg QD Follow up with the Methadone clinic as scheduled (8) Smoker: Code(s): F17.200 - Nicotine dependence, unspecified, uncomplicated Plan: Counseled again on smoking cessation (9) Overweight: Code(s): E66.3 - Overweight Plan: Reinforced diet/exercise as tolerated/lose weight Plan Follow up in 4 months Orders: Referrals Urology Referral C61 - Malignant neoplasm of prostate Medications: Refilled omeprazole 20 mg PO DAILY 30 days 30 caps 3RF lisinopril 5 mg PO DAILY 90 days 90 tabs 1RF Coding Level of Care Code Est Pt Level 4 (67521) Diagnoses Abdominal pain, unspecified abdominal location R10.9 Abdominal location: unspecified location Recurrent prostate cancer C61 Elevated LFTs R79.89 Acute cough R05.1 Cough type: acute Benign essential hypertension I10 History of hepatitis C Z86.19 History of substance abuse F19.11 Smoker F17.200 Overweight E66.3
== END 2023-07-01 11:11 | disposition home or self-care (01) ==
PROVIDERS: PCP Internal Medicine; Visit Provider Internal Medicine
DX: R10.9 Unspecified abdominal pain (principal); C61 Malignant neoplasm of prostate; F19.11 Other psychoactive substance abuse, in remission; R79.89 Other specified abnormal findings of blood chemistry; R05.1 Acute cough; I10 Essential (primary) hypertension; Z86.19 Personal history of other infectious and parasitic diseases; F17.200 Nicotine dependence, unspecified, uncomplicated; E66.3 Overweight
CPT/HCPCS: 99214

== ENCOUNTER 2023-07-01 11:15 | Outpatient (REF) | payer OTHER, SELFPAY ==
[2023-07-01 13:12] LABS: MANUAL DIFF FLAG NO
[2023-07-01 13:21] LABS: Appearance Urine Clear; Color Urine Yellow; Glucose Urine UA Negative (Negative); Leukocyte Esterase Urine Negative (Negative); Nitrite Urine Negative (Negative); PH 8.5 (5.0-9.0); Specific Gravity - Urine 1.015 (1.005-1.025); Urine Blood Negative (Negative); Urine Ketones Negative (Negative); Urine Protein Negative (Neg-Trace)
[2023-07-01 13:31] LABS: Basophils Absolute Auto 0.1 X10*3/uL (0.0-0.2); Basophils Percent Auto 0.6 % (0-2); Eosinophils Absolute Auto 0.1 X10*3/uL (0.0-0.4); Eosinophils Percent Auto 0.7 % (0-4); Hematocrit 40.4 % (42.0-52.0); Hemoglobin 13.6 g/dl (14.0-18.0); Imm Gran Abs Auto 0.03 X10*3/uL (0.00-0.03); Imm Gran Pct Auto 0.4 % (0.0-0.4); Lymphocytes Absolute Auto 1.9 X10*3/uL (1.2-4.9); Lymphocytes Percent Auto 22.9 % (20-40); Mean Corpuscular HGB Conc 33.7 g/dl (31.0-36.0); Mean Corpuscular Hemoglobin 29.7 pg (27.0-33.0); Mean Corpuscular Volume 88.2 fL (80.0-98.0); Mean Platelet Volume 10.2 fL (9.4-12.4); Monocytes Absolute Auto 0.6 X10*3/uL (0.1-1.2); Monocytes Percent Auto 6.7 % (2-11); Neutrophils Absolute Auto 5.6 x10*3/uL (2.0-8.3); Neutrophils Percent Auto 68.7 % (45-73); Platelet Count 267 X10*3/uL (160-400); Red Blood Count 4.58 X10*6/uL (4.60-5.80); Red Cell Distribution Width 13.9 % (11.0-16.0); White Blood Count 8.2 X10*3/uL (4.8-10.8)
[2023-07-01 13:57] LABS: Alanine Aminotransferase 39 U/L (0-40); Albumin Level 4.1 g/dL (3.5-5.0); Alkaline Phosphatase 70 U/L (39-117); Anion Gap 10 (12-20); Aspartate Amino Transferase 34 U/L (5-37); Bilirubin Total 0.2 mg/dL (0.0-1.0); Blood Urea Nitrogen 10 mg/dL (9-16); Calcium 9.1 mg/dL (8.4-10.2); Carbon Dioxide 31 mmol/L (22-29); Chloride 102 mmol/L (96-108); Cholesterol 145 mg/dL (<200); Estimated Glomerular Filt Rate > 60; Glucose Fasting 101 mg/dL (60-99); HDL Cholesterol 27 mg/dL (>40); LDL Cholesterol Calculated 81 mg/dL (<100); Lipase 13 U/L (8-78); Potassium 3.8 mmol/L (3.3-5.1); Sodium 139 mmol/L (135-145); Total Protein 7.2 g/dL (6.5-8.0); Triglycerides 189 mg/dL (<150)
[2023-07-01 14:03] LABS: TSH reflex Free T4 0.96 uIU/mL (0.32-4.0); Vitamin D 25-OH Total 33.5 ng/mL (>30)
[2023-07-01 14:08] LABS: Erythrocyte Sedimentation Rate 7 MM/HR (0-15)
== END 2023-07-01 11:16 | disposition home or self-care (01) ==
LOC: HO.10HDL 11:15
PROVIDERS: Visit Provider Internal Medicine
DX: Z00.00 Encounter for general adult medical examination without abnormal findings (principal); I10 Essential (primary) hypertension; R10.9 Unspecified abdominal pain; E78.00 Pure hypercholesterolemia, unspecified; E55.9 Vitamin D deficiency, unspecified; R30.0 Dysuria
CPT/HCPCS: 36415; 80053; 80061; 81003; 82306; 83690; 84443; 85025; 85652

== ENCOUNTER 2023-11-01 10:41 | Outpatient (AMB) | payer OTHER, SELFPAY ==
--- NOTE | 2023-11-01 10:45 | A.OFFPC_ITS ---
Vital Signs 11/01/23 10:46 Height 5 ft 7 in Weight 165 lb 4 oz BMI 25.9 BP 122/76 Blood Pressure Location Lt brachial Position Sitting Pulse 85 Pulse Source Pulse Oximeter Pulse Oximetry (%) 97 Oxygen Delivery Method Room Air Intake Visit Reasons: HTN, prostate cancer, GERD Intake Note: Patient is here to follow up on HTN, GERD, Prostate Cancer. 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: Present Accompanied by: Spouse Allergies No Known Allergies Allergy (Verified 11/01/23 11:06) Medication List - Last Reconciled 11/01/23 by Bartolo Dumont MD lisinopril 5 mg PO DAILY 90 days methadone 50 mg PO DAILY omeprazole 20 mg PO DAILY 30 days Tobacco use date assessed: 11/01/23 Dental Screening Dental Screen Date: 07/01/23 HPI HTN, prostate cancer, GERD HPI Details Patient comes in today for his follow up visit States that he feels okay He denies any headaches or dizziness Denies any chest pains, no increased SOB No nausea/vomiting, no abdominal pain No change in bowel habits noted He reports (+) intermittent pelvic discomfort and on and off urinary urgency and occasional incontinence of urine but denies any dysuria or hematuria - he continues to follow up with urology regularly for management and surveillance of his recurrent prostate cancer He would like to know how he did on his labs done a few months ago [facility] Medical History Right groin pain Memory loss Overweight Smoker History of hepatitis C History of substance abuse Recurrent prostate cancer (~2018) Benign essential hypertension Hx of radiation therapy History of prostate cancer Hx of irritable bowel syndrome Hepatitis Asthma Surgical History History of surgery on arm Hx of prostate biopsy Hx of right inguinal hernia repair H/O colonoscopy Family History Brother Prostate cancer Mother Diabetes Social History Housing: Apartment Alcohol intake: current Alcohol intake frequency: holidays/special occasions only Patient Tobacco Use Status: Former Tobacco user (2021) Tobacco use type: Cigarette Cigarettes Per Day: 3 e-Cigarette/Vaping Use: Never Used Second Hand Smoke Exposure: Yes Substance Use Type: Marijuana service: No Current occupational status: disabled Cognitive needs: No Hearing needs: Yes Vision needs: Yes Questionnaire Thrive Questionnaire Date Thrive assessed: 07/01/23 MERCEDES-7 AMB Questionnaire MERCEDES-7 Date MERCEDES - 7 assessed: 07/01/23 Source: Developed by Drs. Jamal Grove, Antionette Baca, Compa Diaz and colleagues, with an educational nikki from [employer]. Review of Systems Const Denies chills, Reports fatigue, Denies fever(s) and Denies headache(s) ENT Denies dysphagia, Denies dizziness, Denies otalgia, Denies headache(s), Denies neck pain, Denies odynophagia and Denies sore throat Card Denies chest pain, Denies rapid heart rate, Denies irregular heart rhythm, Denies palpitations and Denies dyspnea Resp Denies chest congestion, Denies cough, Denies pain with cough, Denies dyspnea and Denies wheezing GI Details: (+) occasional pelvic discomfort Denies abdominal pain, Denies constipation, Denies dysphagia, Denies heartburn, Denies diarrhea, Denies nausea, Denies odynophagia and Denies vomiting Denies hematuria, Denies difficulty urinating, Denies dysuria, Denies nocturia, Denies urinary frequency, Reports urinary incontinence (at times) and Reports urinary urgency (intermittent) Musc Denies back pain, Denies arthralgias and Denies neck pain Skin/Breast Denies rash Neuro Denies dizziness, Denies headache(s) and Denies paresthesias Endo Reports fatigue and Denies palpitations Aller/Immun Denies wheezing Physical exam (Primary Care) Vital Signs: Last Vital Signs Pulse 85 11/01/23 10:46 BP 122/76 11/01/23 10:46 Pulse Ox 97 11/01/23 10:46 Oxygen Delivery Method Room Air 11/01/23 10:46 BMI result Body Mass Index 25.9 Tobacco/Smoking Status: Tobacco use Status Tobacco use date assessed 11/01/23 11/01/23 10:51 Patient Tobacco Use Status Former Tobacco user (2021) 11/01/23 10:51 Tobacco use type Cigarette 11/01/23 10:51 e-Cigarette/Vaping Use Never Used 11/01/23 10:51 Thrive Assessment: Date of Thrive Assessment Date Thrive assessed 07/01/23 11/01/23 10:51 Const General: no acute distress and alert HENMT Ears: TM's normal bilaterally and EAC's normal Throat: Yes posterior oropharynx normal and Yes tonsils normal (no TP congestion) Neck Neck: Yes no lymphadenopathy and Yes supple Thyroid: Thyroid normal Resp Auscultation: no rales, rhonchi (scattered) throughout, no wheezes and diminished lung sounds (slightly) bilateral Cardio Rate: regular rate Rhythm: regular rhythm Heart sounds: no murmurs GI Palpation (GI): Soft to palpation and nontender Auscultation: normal bowel sounds General: Yes no CVA tenderness Back/Spine/Pelvis Back: no CVA tenderness Thoracic/Lumbar Spine: lumbar spinal tenderness (mild) Skin Rashes: no rashes Extrem General: Yes no clubbing, cyanosis or edema Results Reviewed Results Reviewed: Laboratory Tests 07/01/23 11:20 WBC 8.2 Hgb 13.6 L Hct 40.4 L Plt Count 267 Sodium 139 Potassium 3.8 Creatinine 0.91 Estimated GFR > 60 Fasting Glucose 101 H Calcium 9.1 AST 34 ALT 39 Triglycerides 189 H Cholesterol 145 LDL Cholesterol, Calc 81 HDL Cholesterol 27 L Lipase 13 25-OH Vitamin D Total 33.5 TSH 0.96 Ur Specific [place] 1.015 Urine Protein Negative Urine Glucose (UA) Negative Urine Blood Negative Urine Nitrite Negative Ur Leukocyte Esterase Negative Assessment and Plan Assessment & Plan (1) Recurrent prostate cancer: Onset Date: ~2018 Code(s): C61 - Malignant neoplasm of prostate Plan: Patient used to see Dr. Kodi Parks but has been going to [facility] in [place] and Dr. Sadler at [facility] for continuing follow up and management of his prostate cancer for the past few years now He requested to see Dr. Lopez at his last visit for a second opinion but he did not keep his appt with Dr. Lopez back in August 2023 and continues to go to [facility] in [place] He has had external beam radiation therapy and PET scan in January 2022 suggested increased uptake in the pelvic LN consistent with N1 disease TRUSP Bx done in February 2022 was negative for prostate malignancy and he was recommended to continue with observation at the time Follow up PET scan in March 2023 revealed borderline decrease in size and uptake in the right external iliac LN with additional tiny right pelvic sidewall LN with faint uptake suggesting metastatic prostate malignancy Follow up with urology as scheduled (2) Elevated LFTs: Code(s): R79.89 - Other specified abnormal findings of blood chemistry Plan: His LFTs were normal on his labs done a few months ago Patient states that he does not drink alcohol Will continue to monitor his LFTs regularly (3) Gastritis: Code(s): K29.70 - Gastritis, unspecified, without bleeding Qualifiers: Gastritis type: unspecified gastritis Chronicity: unspecified Gastritis bleeding: without bleeding Qualified Code(s): K29.70 - Gastritis, unspecified, without bleeding Plan: Dietary restrictions reinforced Continue Omeprazole 20 mg QD (4) Benign essential hypertension: Code(s): I10 - Essential (primary) hypertension Plan: Reinforced low sodium diet - goal is systolic BP of 120 mm or less Continue Lisinopril 5 mg QD Will recheck his labs in 4 months (5) History of hepatitis C: Comment: S/P Tx with Mavyret Code(s): Z86.19 - Personal history of other infectious and parasitic diseases Plan: S/P Tx with Mavyret Follow up with Dr. Stahl as scheduled for continuing surveillance and management (6) History of substance abuse: Code(s): F19.11 - Other psychoactive substance abuse, in remission Plan: Continue Methadone 50 mg QD Follow up with the Methadone clinic as scheduled (7) Smoker: Code(s): F17.200 - Nicotine dependence, unspecified, uncomplicated Plan: Counseled again on smoking cessation (8) Overweight: Code(s): E66.3 - Overweight Plan: Reinforced diet/exercise as tolerated/lose weight Plan To return in 4 months for his annual physical examination Orders: Orders Complete Blood Count Auto Diff 4 Months D64.9 - Anemia, unspecified, Z00.00 - Encounter for general adult medical examination without abnormal findings Lipid Panel 4 Months E78.00 - Pure hypercholesterolemia, unspecified, Z00.00 - Encounter for general adult medical examination without abnormal findings TSH reflex Free T4 4 Months E78.00 - Pure hypercholesterolemia, unspecified, Z00.00 - Encounter for general adult medical examination without abnormal findings UA CC w/rflx Micro + Cult 4 Months R30.0 - Dysuria, Z00.00 - Encounter for general adult medical examination without abnormal findings Comprehensive [place]. Panel Fast 4 Months E78.00 - Pure hypercholesterolemia, unspecified, Z00.00 - Encounter for general adult medical examination without abnormal findings Vitamin D 25-OH Total 4 Months E55.9 - Vitamin D deficiency, unspecified, Z00.00 - Encounter for general adult medical examination without abnormal findings Coding Level of Care Code Est Pt Level 4 (01805) Diagnoses Recurrent prostate cancer C61 Elevated LFTs R79.89 Gastritis without bleeding, unspecified chronicity, unspecified gastritis type K29.70 Gastritis type: unspecified gastritis Chronicity: unspecified Gastritis bleeding: without bleeding Benign essential hypertension I10 History of hepatitis C Z86.19 History of substance abuse F19.11 Smoker F17.200 Overweight E66.3
[2023-11-01 10:46] VITALS: BP 122/76; PULSE 85; O2SAT 97; BMI 25.9
== END 2023-11-01 11:16 | disposition home or self-care (01) ==
PROVIDERS: PCP Internal Medicine; Visit Provider Internal Medicine
DX: C61 Malignant neoplasm of prostate (principal); R79.89 Other specified abnormal findings of blood chemistry; K29.70 Gastritis, unspecified, without bleeding; I10 Essential (primary) hypertension; Z86.19 Personal history of other infectious and parasitic diseases; F19.11 Other psychoactive substance abuse, in remission; F17.200 Nicotine dependence, unspecified, uncomplicated; E66.3 Overweight
CPT/HCPCS: 99214

== ENCOUNTER 2024-02-29 10:35 | Outpatient (REF) | payer OTHER, SELFPAY ==
[2024-02-29 13:12] LABS: MANUAL DIFF FLAG NO
[2024-02-29 13:15] LABS: Basophils Absolute Auto 0.1 X10*3/uL (0.0-0.2); Basophils Percent Auto 0.9 % (0-2); Eosinophils Absolute Auto 0.1 X10*3/uL (0.0-0.4); Eosinophils Percent Auto 1.8 % (0-4); Hematocrit 40.9 % (42.0-52.0); Hemoglobin 13.7 g/dl (14.0-18.0); Imm Gran Abs Auto 0.02 X10*3/uL (0.00-0.03); Imm Gran Pct Auto 0.3 % (0.0-0.4); Lymphocytes Absolute Auto 2.6 X10*3/uL (1.2-4.9); Lymphocytes Percent Auto 33.2 % (20-40); Mean Corpuscular HGB Conc 33.5 g/dl (31.0-36.0); Mean Corpuscular Hemoglobin 29.7 pg (27.0-33.0); Mean Corpuscular Volume 88.7 fL (80.0-98.0); Mean Platelet Volume 10.1 fL (9.4-12.4); Monocytes Absolute Auto 0.6 X10*3/uL (0.1-1.2); Monocytes Percent Auto 7.2 % (2-11); Neutrophils Absolute Auto 4.3 x10*3/uL (2.0-8.3); Neutrophils Percent Auto 56.6 % (45-73); Platelet Count 273 X10*3/uL (160-400); Red Blood Count 4.61 X10*6/uL (4.60-5.80); Red Cell Distribution Width 13.2 % (11.0-16.0); White Blood Count 7.7 X10*3/uL (4.8-10.8)
[2024-02-29 13:29] LABS: Appearance Urine Clear; Color Urine Yellow; Glucose Urine UA Negative (Negative); Leukocyte Esterase Urine Negative (Negative); Nitrite Urine Negative (Negative); Specific Gravity - Urine <= 1.005 (1.005-1.025); Urine Blood Negative (Negative); Urine Ketones Negative (Negative); Urine Protein Negative (Neg-Trace)
[2024-02-29 13:49] LABS: Alanine Aminotransferase 34 U/L (0-40); Albumin Level 4.1 g/dL (3.5-5.0); Alkaline Phosphatase 64 U/L (39-117); Anion Gap 12 (12-20); Aspartate Amino Transferase 29 U/L (5-37); Bilirubin Total 0.4 mg/dL (0.0-1.0); Blood Urea Nitrogen 13 mg/dL (9-16); Calcium 9.5 mg/dL (8.4-10.2); Carbon Dioxide 29 mmol/L (22-29); Chloride 102 mmol/L (96-108); Cholesterol 141 mg/dL (<200); Estimated Glomerular Filt Rate > 60; Glucose Fasting 131 mg/dL (60-99); HDL Cholesterol 29 mg/dL (>40); LDL Cholesterol Calculated 83 mg/dL (<100); Potassium 3.9 mmol/L (3.3-5.1); Sodium 139 mmol/L (135-145); Total Protein 7.1 g/dL (6.5-8.0); Triglycerides 147 mg/dL (<150)
[2024-02-29 13:56] LABS: TSH reflex Free T4 2.06 uIU/mL (0.32-4.0); Vitamin D 25-OH Total 32.9 ng/mL (>30)
== END 2024-02-29 10:36 | disposition home or self-care (01) ==
LOC: HO.10HDL 10:35
PROVIDERS: Visit Provider Internal Medicine
DX: Z00.00 Encounter for general adult medical examination without abnormal findings (principal); D64.9 Anemia, unspecified; E78.00 Pure hypercholesterolemia, unspecified; R30.0 Dysuria; E55.9 Vitamin D deficiency, unspecified
CPT/HCPCS: 36415; 80053; 80061; 81003; 82306; 84443; 85025

== ENCOUNTER 2024-03-01 10:22 | Outpatient (AMB) | payer OTHER, SELFPAY ==
[2024-03-01 10:29] VITALS: BP 136/90; PULSE 64; O2SAT 97; BMI 26.2
--- NOTE | 2024-03-01 10:29 | A.OFFPC_ITS ---
Vital Signs 03/01/24 10:29 Height 5 ft 7 in Weight 167 lb BMI 26.2 BP 136/90 H Blood Pressure Location Lt brachial Position Sitting Pulse 64 Pulse Source Pulse Oximeter Pulse Oximetry (%) 97 Oxygen Delivery Method Room Air Intake Visit Reasons: Annual Exam Insurance Special Agent Required: No Accompanied by: Self / Same As Patient Allergies No Known Allergies Allergy (Verified 03/01/24 11:14) Medication List - Last Reconciled 03/01/24 by Bartolo Dumont MD lisinopril 5 mg PO DAILY 90 days methadone 50 mg PO DAILY omeprazole 20 mg PO DAILY 30 days Tobacco use date assessed: 03/01/24 Dental Screening Dental Screen Date: 03/01/24 Did you have a dental visit in the last 12 months?: No Did you have a dental problem in the last 6 months where you did not have access to dental care?: No Was dental information given to patient?: No HPI Annual Exam HPI Details Patient comes in today for his annual physical examination States that he feels okay but he continues to struggle with sleeping at night He denies any headaches or dizziness Denies any chest pains, no SOB No nausea/vomiting, no abdominal pain No change in bowel habits noted He denies any acute urinary symptoms He had his follow-up labs done yesterday - to discuss his results He is due for his repeat colonoscopy - this was last done in [address] Murguia and he was advised to get a repeat colonoscopy in 3 years [facility] Medical History (Updated 03/05/24 @ 04:21 by Bartolo Dumont MD) Insomnia Overweight (BMI 25.0-29.9) Right groin pain Memory loss Overweight Smoker History of hepatitis C History of substance abuse Recurrent prostate cancer (~2019) Benign essential hypertension Hx of radiation therapy History of prostate cancer Hx of irritable bowel syndrome Hepatitis Asthma Surgical History History of surgery on arm Hx of prostate biopsy Hx of right inguinal hernia repair H/O colonoscopy Family History Brother Prostate cancer Mother Diabetes Social History Housing: Apartment Alcohol intake: current Alcohol intake frequency: holidays/special occasions only Patient Tobacco Use Status: Former Tobacco user (2021) Tobacco use type: Cigarette Cigarettes Per Day: 3 e-Cigarette/Vaping Use: Never Used Second Hand Smoke Exposure: Yes Substance Use Type: Marijuana service: No Current occupational status: disabled Cognitive needs: No Hearing needs: Yes Vision needs: Yes Questionnaire PHQ-9 Over the last 2 weeks, how often have you been bothered by any of the following problems? 1. Little interest or pleasure in doing things: not at all 2. Feeling down, depressed, or hopeless: not at all 3. Trouble falling or staying asleep, or sleeping too much: several days 4. Feeling tired or having little energy: not at all 5. Poor appetite or overeating: not at all 6. Feeling bad about yourself - or that you are a failure or have let yourself or your family down: not at all 7. Trouble concentrating on things, such as reading the newspaper or watching television: not at all 8. Moving or speaking so slowly that other people could have noticed. Or the opposite - being so fidgety or restless that you have been moving around a lot more than usual: not at all 9. Thoughts that you would be better off or of hurting yourself in some way: not at all Total score: 1 Depression Screening Interpretation: Negative Depression Screening Done: Yes 88855 - PHQ-9 Billing: Yes Source: Developed by Drs. Jamal Grove, Antionette Baca, Compa Diaz and colleagues, with an educational nikki from [employer]. Thrive Questionnaire Date Thrive assessed: 03/01/24 I am a: Patient What is your living situation today?: I have a steady place to live Within the past 12 months, did the food you bought not last and you didn't have the money to get more?: Sometimes True Within the past 12 months, did you worry whether your food would run out before you got money to buy more?: Sometimes True Do you have trouble paying for medicines?: No Do you have trouble getting transportation to medical appointments?: No Do you have trouble paying your heating and electricity bill?: No Do you have trouble taking care of your child, family member or friend?: No Do you have trouble with day-to-day activities such as bathing, preparing meals, shopping, managing finances, etc.?: No Are you currently unemployed and looking for a job?: No Are you interested in more education?: No Please select the resources that you would like help with: None Currently or been in a relationship where the following occur: No concerns reported THRIVE Score: 2 AUDIT C Alcohol Use Questionnaire (AUDIT-C) 1. How often do you have a drink containing alcohol?: Never 2. How many drinks containing alcohol do you have on a typical day when you are drinking?: 1 or 2 3. How often do you have six or more drinks on one occasion?: Never Total Score: 0 Score Reviewed/Action Taken: Yes MERCEDES-7 AMB Questionnaire MERCEDES-7 Date MERCEDES - 7 assessed: 03/01/24 Feeling nervous, anxious, or on edge: 1 = Several days Not being able to stop or control worryin = Several days Worrying too much about different things: 1 = Several days Trouble relaxin = More than half the days Being so restless that it is hard to sit still: 1 = Several days Becoming easily annoyed or irritable: 1 = Several days Feeling afraid as if something awful might happen: 1 = Several days Total MERCEDES-7 score (0-4 normal; 5-9 mild; 10-14 moderate; 15-21 severe): 8 Source: Developed by Drs. Jamal Grove, Antionette Baca, Compa Diaz and colleagues, with an educational nikki from [employer]. Review of Systems Const Denies chills, Reports difficulty sleeping, Denies fatigue, Denies fever(s), Denies headache(s), Denies malaise and Denies weakness Eyes Denies blurry vision, Denies change in vision, Denies irritation and Denies itchy eyes ENT Denies dysphagia, Denies dizziness, Denies otalgia, Denies headache(s), Denies nasal congestion, Denies neck pain, Denies odynophagia and Denies sore throat Card Denies chest pain, Denies rapid heart rate, Denies irregular heart rhythm, Denies palpitations and Denies dyspnea Resp Denies chest congestion, Denies cough, Denies dyspnea and Denies wheezing GI Denies abdominal pain, Denies bloating, Denies constipation, Denies dysphagia, Denies heartburn, Denies diarrhea, Denies nausea, Denies odynophagia and Denies vomiting Denies hematuria, Denies difficulty urinating, Denies dysuria, Denies urinary frequency and Denies urinary urgency Musc Denies back pain, Denies arthralgias, Denies joint swelling, Denies muscle weakness and Denies neck pain Skin/Breast Denies change in pigmentation, Denies lesions, Denies rash and Denies unusual bruising Neuro Denies dizziness, Denies headache(s), Denies paresthesias and Denies weakness Psych Reports anxiety Endo Denies fatigue and Denies palpitations Aller/Immun Denies itchy eyes and Denies wheezing Physical exam (Primary Care) Vital Signs: Last Vital Signs Pulse 64 03/01/24 10:29 BP 136/90 H 03/01/24 10:29 Pulse Ox 97 03/01/24 10:29 Oxygen Delivery Method Room Air 03/01/24 10:29 BMI result Body Mass Index 26.2 Tobacco/Smoking Status: Tobacco use Status Tobacco use date assessed 03/01/24 03/01/24 10:33 Patient Tobacco Use Status Former Tobacco user (2021) 03/01/24 10:33 Tobacco use type Cigarette 03/01/24 10:33 e-Cigarette/Vaping Use Never Used 03/01/24 10:33 PHQ-9: PHQ-9 Score PHQ-9: Total score 1 03/01/24 11:25 Depression Screening Interpretation: Negative Thrive Assessment: Date of Thrive Assessment Date Thrive assessed 03/01/24 03/01/24 10:33 Currently or been in a relationship where the following occur: No concerns reported Const General: no acute distress, alert and awake Orientation/consciousness: patient oriented x3 HENMT Head: Yes normocephalic and Yes atraumatic Ears: external ears normal, TM's normal bilaterally and EAC's normal General nose exam: No nasal discharge present Face and sinus: Yes normal facial exam and Yes sinuses nontender Teeth and gingiva: dentition normal Throat: Yes posterior oropharynx normal and Yes tonsils normal (no TP congestion) Eyes Eyelids: Yes eyelids normal Conjunctivae: conjunctivae normal Pupils: Equal, round and reactive pupils present EOM: EOMs intact bilaterally Neck Neck: Yes no lymphadenopathy and Yes supple Thyroid: Thyroid normal Resp Auscultation: clear to auscultation bilaterally, no rales and no wheezes Cardio Rate: regular rate Rhythm: regular rhythm Heart sounds: no murmurs GI Palpation (GI): Soft to palpation, nontender and No hepatosplenomegaly present Auscultation: normal bowel sounds General: Yes no CVA tenderness Back/Spine/Pelvis Back: no CVA tenderness Thoracic/Lumbar Spine: thoracic and lumbar spine normal to inspection Skin Lesions: no lesions Rashes: no rashes Neuro General: patient oriented x3, moves all extremities, no focal motor deficits and CN's II-XI intact bilaterally Cranial nerves: Yes Equal, round and reactive pupils present Cognition (Neuro): normal cognition Gait exam (Neuro): Normal gait present Extrem General: Yes no clubbing, cyanosis or edema Office Procedures Flu Questionnaire Does the patient have a severe egg allergy?: No Results AMB Hemoglobin A1c AMB Hemoglobin A1c 5.8 % Last Edit by STEFFANIE Shaw on 03/01/24 11 :25 Immunizations Fluarix Triv [id number] (PF) 45 mcg (15 mcg x 3)/0.5 mL IM syringe Performing Provider: Bartolo Dumont MD [facility]forming Location: [facility] Documented (not given) by: STEFFANIE Shaw on 03/01/24 10:57 Reason Not Given: Patient Refused Results Reviewed Results Reviewed: Laboratory Last Values Hgb A1c (Clinic) 5.8 % (4.0-6.0) 03/01/24 11:13 Laboratory Tests 02/29/24 03/01/24 10:40 11:13 WBC 7.7 Hgb 13.7 L Hct 40.9 L Plt Count 273 Sodium 139 Potassium 3.9 Creatinine 1.00 Estimated GFR > 60 Fasting Glucose 131 H Hgb A1c (Clinic) 5.8 Calcium 9.5 AST 29 ALT 34 Triglycerides 147 Cholesterol 141 LDL Cholesterol, Calc 83 HDL Cholesterol 29 L 25-OH Vitamin D Total 32.9 TSH 2.06 Ur Specific [place] <= 1.005 Urine Protein Negative Urine Glucose (UA) Negative Urine Blood Negative Urine Nitrite Negative Ur Leukocyte Esterase Negative Coding Level of Care Code Est Pt Prev Care 40-64y(34982) Diagnoses Annual physical exam Z00.00 Recurrent prostate cancer C61 Elevated LFTs R79.89 Gastritis without bleeding, unspecified chronicity, unspecified gastritis type K29.70 Gastritis type: unspecified gastritis Chronicity: unspecified Gastritis bleeding: without bleeding Benign essential hypertension I10 History of hepatitis C Z86.19 History of substance abuse F19.11 Insomnia, unspecified type G47.00 Insomnia type: unspecified Overweight (BMI 25.0-29.9) E66.3 Colon cancer screening Z12.11 Assessment & Plan Assessment & Plan (1) Annual physical exam: Code(s): Z00.00 - Encounter for general adult medical examination without abnormal findings Category: Medical Plan: Results of his labs done yesterday reviewed and discussed with patient He is due for repeat colonoscopy and will be referred back to GI for this (2) Recurrent prostate cancer: Onset Date: ~2018 Code(s): C61 - Malignant neoplasm of prostate Category: Medical Plan: He had external beam radiation therapy and PET scan in January 2022 suggested increased uptake in the pelvic LN consistent with N1 disease TRUSP Bx done in February 2022 was negative for prostate malignancy and he was recommended to continue with observation at the time Follow up PET scan in March 2023 revealed borderline decrease in size and uptake in the right external iliac LN with additional tiny right pelvic sidewall LN with faint uptake suggesting metastatic prostate malignancy Follow up with urology as scheduled (3) Elevated LFTs: Code(s): R79.89 - Other specified abnormal findings of blood chemistry Category: Medical Plan: His LFTs were normal again on his labs done yesterday Patient states that he does not drink alcohol Will continue to monitor his LFTs regularly (4) Gastritis: Code(s): K29.70 - Gastritis, unspecified, without bleeding Category: Medical Qualifiers: Gastritis type: unspecified gastritis Chronicity: unspecified Gastritis bleeding: without bleeding Qualified Code(s): K29.70 - Gastritis, unspecified, without bleeding Plan: Dietary restrictions reinforced Continue Omeprazole 20 mg QD (5) Benign essential hypertension: Code(s): I10 - Essential (primary) hypertension Category: Medical Plan: Reinforced low sodium diet - goal is systolic BP of 120 mm or less Will go ahead and increase his Lisinopril to 10 mg QD Will recheck his labs in 4 months for follow up (6) History of hepatitis C: Comment: S/P Tx with Mavyret Code(s): Z86.19 - Personal history of other infectious and parasitic diseases Category: Medical Plan: S/P Tx with Mavyret Follow up with Dr. Stahl as scheduled for continuing surveillance and management (7) History of substance abuse: Code(s): F19.11 - Other psychoactive substance abuse, in remission Category: Medical Plan: Continue Methadone 50 mg QD Follow up with the Methadone clinic as scheduled (8) Insomnia: Code(s): G47.00 - Insomnia, unspecified Category: Medical Qualifiers: Insomnia type: unspecified Qualified Code(s): G47.00 - Insomnia, unspecified Plan: Sleep hygiene reinforced Will start him on a trial of Doxepin 10 mg Q HS PRN (9) Overweight (BMI 25.0-29.9): Code(s): E66.3 - Overweight Category: Medical Plan: Reinforced diet/exercise as tolerated/lose weight (10) Colon cancer screening: Code(s): Z12.11 - Encounter for screening for malignant neoplasm of colon Category: Medical Plan: Will refer him back to GI for repeat colonoscopy Plan Follow up in 3 months Orders: Orders Influenza [id number] Immunization 03/01/24 Z23 - Encounter for immunization Comprehensive [place]. Panel Fast 3 Months E78.00 - Pure hypercholesterolemia, unspecified AMB Hemoglobin A1c 03/01/24 Z13.9 - Encounter for screening, unspecified Lipid Panel 3 Months E78.00 - Pure hypercholesterolemia, unspecified Hemoglobin A1c 3 Months R73.01 - Impaired fasting glucose Referrals Gastroenterology Referral Z12.11 - Encounter for screening for malignant neoplasm of colon Medications: New doxepin 10 mg PO BEDTIME 30 days 30 caps 0RF Changed From lisinopril 5 mg PO DAILY 90 days 90 tabs 1RF To lisinopril 10 mg PO DAILY 90 days 90 tabs 1RF
== END 2024-03-01 11:30 | disposition home or self-care (01) ==
PROVIDERS: PCP Internal Medicine; Visit Provider Internal Medicine
DX: Z00.00 Encounter for general adult medical examination without abnormal findings (principal); C61 Malignant neoplasm of prostate; F19.11 Other psychoactive substance abuse, in remission; E66.811 Obesity, class 1; Z68.26 Body mass index [BMI] 26.0-26.9, adult; R79.89 Other specified abnormal findings of blood chemistry; K29.70 Gastritis, unspecified, without bleeding; I10 Essential (primary) hypertension; Z86.19 Personal history of other infectious and parasitic diseases; G47.00 Insomnia, unspecified; Z12.11 Encounter for screening for malignant neoplasm of colon

== ENCOUNTER → 2024-03-01 10:22 | Outpatient (BNVA) | payer OTHER, SELFPAY | PROVIDERS: PCP Internal Medicine; Visit Provider Internal Medicine | DX: Z00.01 Encounter for general adult medical examination with abnormal findings (principal); C61 Malignant neoplasm of prostate; R79.89 Other specified abnormal findings of blood chemistry; K29.70 Gastritis, unspecified, without bleeding; I10 Essential (primary) hypertension; F19.11 Other psychoactive substance abuse, in remission; G47.00 Insomnia, unspecified; E66.3 Overweight; Z86.19 Personal history of other infectious and parasitic diseases | CPT/HCPCS: 83036; 90471; 96127; 99396 ==

== ENCOUNTER 2024-04-24 16:49 | Outpatient (AMB) | payer OTHER, SELFPAY ==
[2024-04-24 16:50] VITALS: BP 122/82; PULSE 88; O2SAT 98; BMI 26.0
--- NOTE | 2024-04-24 16:50 | A.OFFPC_ITS ---
Vital Signs 04/24/24 16:50 Height 5 ft 7 in Weight 166 lb 2 oz BMI 26.0 BP 122/82 Blood Pressure Location Lt brachial Position Sitting Pulse 88 Pulse Source Pulse Oximeter Pulse Oximetry (%) 98 Oxygen Delivery Method Room Air Intake Visit Reasons: Left leg pain Rpg Developer Required: No Accompanied by: Self / Same As Patient Allergies No Known Allergies Allergy (Verified 04/30/24 23:17) Medication List - Last Reconciled 04/30/24 by Bartolo Dumont MD azithromycin take 500 mg today (day 1), then 250 mg for 4 days (days 2-5) PO doxepin 10 mg PO BEDTIME 30 days lisinopril 10 mg PO DAILY 90 days methadone 50 mg PO DAILY omeprazole 20 mg PO DAILY 30 days tizanidine 4 mg PO Q8H PRN 30 days Tobacco use date assessed: 04/24/24 Dental Screening Dental Screen Date: 04/24/24 Did you have a dental visit in the last 12 months?: No Did you have a dental problem in the last 6 months where you did not have access to dental care?: No Was dental information given to patient?: Patient has dentist HPI Left leg pain HPI Details Patient comes in today complaining of a persistent cough that he states started several weeks ago States that he has been coughing up thick yellowish phlegm often lately and has also been experiencing some chest congestion and tightness at times, with mild exertional dyspnea recently States that he has not tested himself for COVID or flu He denies any fever or sore throat Denies any chest pains No nausea/vomiting, no abdominal pain No change in bowel habits noted Patient states that he has also been experiencing increased pain over his lower back lately, with the pain often radiating down the back of his right leg Notes that the pain is usually worse when he is sitting or lying down and he has been having trouble sleeping at night lately due to his increased low back pain as he can not seem to find a comfortable position to sleep in He denies any recent injury or trauma to his lower back Patient adds that he has been sent for repeat PET scan to follow-up on his history of prostate cancer but he is still waiting for this to be scheduled [facility] Medical History (Updated 04/30/24 @ 23:52 by Bartolo Dumont MD) Insomnia Overweight (BMI 25.0-29.9) Right groin pain Memory loss Overweight Smoker History of hepatitis C History of substance abuse Recurrent prostate cancer (~2019) Benign essential hypertension Hx of radiation therapy History of prostate cancer Hx of irritable bowel syndrome Hepatitis Asthma Surgical History History of surgery on arm Hx of prostate biopsy Hx of right inguinal hernia repair H/O colonoscopy Family History Brother Prostate cancer Mother Diabetes Social History Housing: Apartment Alcohol intake: current Alcohol intake frequency: holidays/special occasions only Patient Tobacco Use Status: Former Tobacco user (2021) Tobacco use type: Cigarette Cigarettes Per Day: 3 e-Cigarette/Vaping Use: Never Used Second Hand Smoke Exposure: Yes Substance Use Type: Marijuana service: No Current occupational status: disabled Cognitive needs: No Hearing needs: Yes Vision needs: Yes Questionnaire PHQ-9 Over the last 2 weeks, how often have you been bothered by any of the following problems? 1. Little interest or pleasure in doing things: not at all 2. Feeling down, depressed, or hopeless: not at all 3. Trouble falling or staying asleep, or sleeping too much: several days 4. Feeling tired or having little energy: not at all 5. Poor appetite or overeating: not at all 6. Feeling bad about yourself - or that you are a failure or have let yourself or your family down: not at all 7. Trouble concentrating on things, such as reading the newspaper or watching television: not at all 8. Moving or speaking so slowly that other people could have noticed. Or the opposite - being so fidgety or restless that you have been moving around a lot more than usual: not at all 9. Thoughts that you would be better off or of hurting yourself in some way: not at all Total score: 1 Depression Screening Interpretation: Negative Depression Screening Done: Yes 80924 - PHQ-9 Billing: Yes Source: Developed by Drs. Jamal Grove, Antionette Baca, Compa Diaz and colleagues, with an educational nikki from [employer] Thrive Questionnaire Date Thrive assessed: 04/24/24 I am a: Patient What is your living situation today?: I have a steady place to live Within the past 12 months, did the food you bought not last and you didn't have the money to get more?: Sometimes True Within the past 12 months, did you worry whether your food would run out before you got money to buy more?: Sometimes True Do you have trouble paying for medicines?: No Do you have trouble getting transportation to medical appointments?: No Do you have trouble paying your heating and electricity bill?: No Do you have trouble taking care of your child, family member or friend?: No Do you have trouble with day-to-day activities such as bathing, preparing meals, shopping, managing finances, etc.?: No Are you currently unemployed and looking for a job?: No Are you interested in more education?: No Please select the resources that you would like help with: None Currently or been in a relationship where the following occur: No concerns reported THRIVE Score: 2 AUDIT C Alcohol Use Questionnaire (AUDIT-C) 1. How often do you have a drink containing alcohol?: Never 2. How many drinks containing alcohol do you have on a typical day when you are drinking?: 1 or 2 3. How often do you have six or more drinks on one occasion?: Never Total Score: 0 Score Reviewed/Action Taken: Yes MERCEDES-7 AMB Questionnaire MERCEDES-7 Date MERCEDES - 7 assessed: 04/24/24 Feeling nervous, anxious, or on edge: 1 = Several days Not being able to stop or control worryin = Several days Worrying too much about different things: 1 = Several days Trouble relaxin = More than half the days Being so restless that it is hard to sit still: 1 = Several days Becoming easily annoyed or irritable: 1 = Several days Feeling afraid as if something awful might happen: 1 = Several days Total MERCEDES-7 score (0-4 normal; 5-9 mild; 10-14 moderate; 15-21 severe): 8 Source: Developed by Drs. Jamal Grove, Antionette Baca, Compa Diaz and colleagues, with an educational nikki from [employer] Review of Systems Const Denies chills, Reports difficulty sleeping, Denies fatigue, Denies fever(s) and Denies headache(s) ENT Denies dysphagia, Denies dizziness, Denies otalgia, Denies headache(s), Reports nasal congestion, Denies neck pain, Denies odynophagia and Denies sore throat Card Denies chest pain, Denies irregular heart rhythm, Denies palpitations and Reports dyspnea on exertion Resp Reports chest congestion (also relates on and off chest tightness lately), Reports cough (recurrent; coughs up thick yellowish phlegm at times), Reports dyspnea on exertion and Denies wheezing GI Denies abdominal pain, Denies constipation, Denies dysphagia, Denies heartburn, Denies diarrhea, Denies nausea, Denies odynophagia and Denies vomiting Denies difficulty urinating, Denies dysuria and Denies urinary frequency Musc Reports back pain (increased over the lower back lately), Denies arthralgias, Denies neck pain and Reports radiating pain into limb (down the back of the right leg at times) Skin/Breast Denies rash Neuro Denies dizziness, Denies headache(s) and Denies paresthesias Psych Reports anxiety Endo Denies fatigue and Denies palpitations Aller/Immun Denies wheezing Physical exam (Primary Care) Vital Signs: Last Vital Signs Pulse 88 04/24/24 16:50 BP 122/82 04/24/24 16:50 Pulse Ox 98 04/24/24 16:50 Oxygen Delivery Method Room Air 04/24/24 16:50 BMI result Body Mass Index 26.0 Tobacco/Smoking Status: Tobacco use Status Tobacco use date assessed 04/24/24 04/24/24 16:56 Patient Tobacco Use Status Former Tobacco user (2021) 04/24/24 16:56 Tobacco use type Cigarette 04/24/24 16:56 e-Cigarette/Vaping Use Never Used 04/24/24 16:56 PHQ-9: PHQ-9 Score PHQ-9: Total score 1 04/24/24 17:33 Depression Screening Interpretation: Negative Thrive Assessment: Date of Thrive Assessment Date Thrive assessed 04/24/24 04/24/24 16:56 Currently or been in a relationship where the following occur: No concerns reported Const General: no acute distress and alert HENMT Ears: TM's normal bilaterally and EAC's normal Throat: Yes posterior oropharynx normal and Yes tonsils normal (no TP congestion) Neck Neck: Yes supple and No lymphadenopathy Thyroid: Thyroid normal Resp Auscultation: no crackles, no rales, rhonchi (scattered rhonchi bilaterally) and diminished lung sounds (slightly) bilateral Cardio Rate: regular rate Rhythm: regular rhythm Heart sounds: no murmurs GI Palpation (GI): Soft to palpation and nontender Auscultation: normal bowel sounds General: Yes no CVA tenderness Back/Spine/Pelvis Back: no CVA tenderness Thoracic/Lumbar Spine: lumbar spinal tenderness and straight leg raise positive right Skin Rashes: no rashes Extrem General: Yes no clubbing, cyanosis or edema Coding Level of Care Code Est Pt Level 3 (88461) Diagnoses Bronchitis J40 Right lumbosacral radiculopathy M54.17 Additional Codes PHQ-9 - 00600 - PHQ-9 Billing: Yes ([id number]) Assessment & Plan Assessment & Plan (1) Bronchitis: Code(s): J40 - Bronchitis, not specified as acute or chronic Category: Medical Plan: Will start patient on Azithromycin QD x 5 days (2) Right lumbosacral radiculopathy: Code(s): M54.17 - Radiculopathy, lumbosacral region Category: Medical Plan: Will send him for x-rays of the lumbar spine for further evaluation Will also start him for now on Tizanidine 4 mg Q 8 hours PRN to help alleviate some of his symptoms until we have a chance to further evaluate his increasing low back pain Plan Follow up as scheduled in June 2024 Orders: Orders XR lumbar spine 2-3V 04/24/24 M54.17 - Radiculopathy, lumbosacral region, M54.50 - Low back pain, unspecified, R29.898 - Other symptoms and signs involving the musculoskeletal system Medications: New tizanidine 4 mg PO Q8H PRN 90 tabs 0RF muscle spasms 30 days azithromycin take 500 mg today (day 1), then 250 mg for 4 days (days 2-5) PO 6 tabs 0RF
== END 2024-04-24 17:35 | disposition home or self-care (01) ==
PROVIDERS: PCP Internal Medicine; Visit Provider Internal Medicine
DX: J40 Bronchitis, not specified as acute or chronic (principal); M54.17 Radiculopathy, lumbosacral region

== ENCOUNTER → 2024-04-24 16:49 | Outpatient (BNVA) | payer OTHER, SELFPAY | PROVIDERS: PCP Internal Medicine; Visit Provider Internal Medicine | DX: J40 Bronchitis, not specified as acute or chronic (principal); M54.17 Radiculopathy, lumbosacral region | CPT/HCPCS: 96127; 99212 ==

== ENCOUNTER 2024-05-15 08:57 | Outpatient (REF) | payer OTHER, SELFPAY ==
--- NOTE | ~2024-05-15 | XR_ITS ---
EXAMINATION: XR LUMBOSACRAL SPINE CLINICAL INFORMATION: M54.50 - Low back pain, unspecified COMPARISON: None available. TECHNIQUE: Three views of the lumbosacral spine. FINDINGS: There is normal lumbar lordosis. The vertebral heights and alignment is normal. There is mild loss of L5-S1 disc height. Rest of disc heights are normal. There is mild ventral spondylosis L3-4, L4-5 disc levels. No visible acute fracture, dislocation or subluxation seen. No aggressive lytic or sclerotic process. The SI joints are symmetrical and normal. XR/XR lumbar spine 2-3V IMPRESSION: Degenerative disc changes L5-S1 disc level. There is mild ventral spondylosis L3-4, L4-5 and L5-S1 disc levels. Electronically signed by: Madan Escobar MD 05/15/2024 09:44 AM MARIA ESTHER
== END 2024-05-15 08:58 | disposition home or self-care (01) ==
LOC: HO.XRAY 08:57
PROVIDERS: PCP Internal Medicine; Visit Provider Internal Medicine
DX: M54.50 Low back pain, unspecified (principal); M54.17 Radiculopathy, lumbosacral region; R29.898 Other symptoms and signs involving the musculoskeletal system
CPT/HCPCS: 72100

== ENCOUNTER → 2024-05-15 09:00 | Outpatient (BNV) | payer OTHER, SELFPAY | PROVIDERS: PCP Internal Medicine; Visit Provider Radiology Diagnostic Radiology | DX: M54.50 Low back pain, unspecified (principal) | CPT/HCPCS: 72100 ==

== ENCOUNTER → 2024-06-23 10:26 | Outpatient (BNVA) | payer OTHER, SELFPAY | PROVIDERS: PCP Internal Medicine; Visit Provider Internal Medicine | DX: L81.9 Disorder of pigmentation, unspecified (principal); M51.362 Other intervertebral disc degeneration, lumbar region with discogenic back pain and lower extremity pain; H91.90 Unspecified hearing loss, unspecified ear; C61 Malignant neoplasm of prostate; I10 Essential (primary) hypertension; R79.89 Other specified abnormal findings of blood chemistry; K29.70 Gastritis, unspecified, without bleeding; F19.11 Other psychoactive substance abuse, in remission; G47.00 Insomnia, unspecified; Z86.19 Personal history of other infectious and parasitic diseases | CPT/HCPCS: 96127; 99212 ==

== ENCOUNTER 2024-07-04 09:42 | Outpatient (AMB) | payer OTHER, SELFPAY ==
[2024-07-04 09:44] VITALS: BP 173/85; PULSE 98; O2SAT 98; BMI 25.7
--- NOTE | 2024-07-04 09:44 | A.OFFVIS_ITS ---
Vital Signs 3 07/04/24 09:44 Height 5 ft 7 in Weight 164 lb 2 oz BMI 25.7 BP 173/85 H Blood Pressure Location Lt brachial Position Sitting Pulse 98 Pulse Source Pulse Oximeter Pulse Oximetry (%) 98 Oxygen Delivery Method Room Air Intake Visit Reasons: Intervertebral Disc Degeneration Accompanied by: Spouse Allergies No Known Allergies Allergy (Verified 07/04/24 09:47) HPI Comments Details: Atilio is a very pleasant 59-year-old male who presents to the office today for evaluation and management of his right lower back pain Patient reports suffering lower back pain since . Over the last month he has developed radiating pain down the right leg. Denies injury, trauma, fall. Reports pain starts lower lumbar then down around the right hip, down lateral thigh to the anterior ankle and across the top of the foot to the big toe Endorses numbness and tingling of the right lower extremity Pain is worse with standing, moving, walking No improvement with Motrin, Tylenol, icy hot. Prescribed tizanidine by PCP, reports it makes him too sleepy so he does not take it. Endorses history of substance use, is not interested in trialing alternative muscle relaxer Denies red flag symptoms including new loss of bowel, bladder or saddle anesthesia Pain today is rated as an 8/10, constant Recent x-ray reviewed, results as per below In terms of muscle damage condition is described as aching, stabbing, sharp, shooting, numbness, pins and needles Pain is negatively impacting patient's enjoyment of life, general activity, sleep, ability to perform activities of daily living, ability to function normally Denies current use of anticoagulants Denies implantable devices, pacemaker defibrillator Denies current use of nicotine, tobacco, alcohol or illicit substances. Endorses history of heroin use, currently on methadone. [facility] Medical History Lumbar degenerative disc disease Insomnia Overweight (BMI 25.0-29.9) Right groin pain Memory loss Overweight Smoker History of hepatitis C History of substance abuse Recurrent prostate cancer (~2019) Benign essential hypertension Hx of radiation therapy History of prostate cancer Hx of irritable bowel syndrome Hepatitis Asthma Surgical History History of surgery on arm Hx of prostate biopsy Hx of right inguinal hernia repair H/O colonoscopy Family History Brother Prostate cancer Mother Diabetes Social History Housing: Apartment Alcohol intake: current Alcohol intake frequency: holidays/special occasions only Patient Tobacco Use Status: Former Tobacco user (2021) Tobacco use type: Cigarette Cigarettes Per Day: 3 e-Cigarette/Vaping Use: Never Used Second Hand Smoke Exposure: Yes Substance Use Type: Marijuana service: No Current occupational status: disabled Cognitive needs: No Hearing needs: Yes Vision needs: Yes Review of Systems Const All systems reviewed & are unremarkable except as noted in HPI and below Physical Exam Vital Signs: Last Vital Signs Pulse 98 07/04/24 09:44 BP 173/85 H 07/04/24 09:44 Pulse Ox 98 07/04/24 09:44 Oxygen Delivery Method Room Air 07/04/24 09:44 BMI result Body Mass Index 25.7 General: awake, alert, oriented. Answers questions appropriately. Fully engaged in examination. Skin: warm, dry, intact HEENT: Normocephalic. Hearing intact. Cardiac: External chest normal in appearance. Respiratory: No cough, audible wheezing or stridor. Abdomen: without gross distension. MS: No obvious swelling or deformities. Able to stand on bilateral tiptoes and bilateral heels.? Able to transition from sit to stand unassisted. Ambulates with bilaterally normal heel strike and toe off Bilateral lower extremity strength 5/5 SLR positive on the right Tenderness over midline lumbar vertebrae and lumbar paraspinal muscles Not tender over bilateral PSIS Lumbar range of motion intact Negative footdrop, negative clonus Neurological: Oriented to person, place, time and situation. Thought process intact. No gait abnormalities appreciated. Psychiatric: Appropriate mood and affect. Good judgment and insight. Results Reviewed Results Reviewed: 05/15/24 XR/XR lumbar spine 2-3V FINDINGS: There is normal lumbar lordosis. The vertebral heights and alignment is normal. There is mild loss of L5-S1 disc height. Rest of disc heights are normal. There is mild ventral spondylosis L3-4, L4-5 disc levels. No visible acute fracture, dislocation or subluxation seen. No aggressive lytic or sclerotic process. The SI joints are symmetrical and normal. IMPRESSION: Degenerative disc changes L5-S1 disc level. There is mild ventral spondylosis L3-4, L4-5 and L5-S1 disc levels. 11/15/2012 MRI lumbar spine Assessment & Plan Assessment & Plan (1) Right lumbosacral radiculopathy: Code(s): M54.17 - Radiculopathy, lumbosacral region Category: Medical (2) Lumbar spondylosis: Code(s): M47.816 - Spondylosis without myelopathy or radiculopathy, lumbar region Category: Medical Plan Atilio is a very pleasant 59-year-old male who presented to the office today for evaluation and management of his chronic right back pain History, physical exam and provocative testing consistent with lumbar radiculopathy and lumbar spondylosis Order placed for PT eval treat Prednisone 40 mg once daily x5 days. Lidocaine 5% topical patches. Leave on most painful area for up to 12 hours once daily as needed. All questions and concerns were answered, patient agrees to the plan. All of after physical therapy, sooner if needed. If no improvement with PT plan for MRI. Orders: Orders 2 PT Evaluation and Treatment Today M54.17 - Radiculopathy, lumbosacral region Medications: New 2 prednisone 40 mg (2 x 20 mg) PO DAILY 5 days 10 tabs 0RF lidocaine 5% leave on most painful area for up to 12 hrs 1 patch topical DAILY PRN 30 ea 3RF pain Coding Level of Care Code New Pt Level 4 (25654) Complex EM visit Add On G2211 Diagnoses Right lumbosacral radiculopathy M54.17 Lumbar spondylosis M47.816
--- OUTSIDE RECORDS SUMMARY | 2024-07-04 10:30 | XMS_ITS | Encounter Summary ---
Author Organization [facility] Address [address] [place] [address] Care Team Providers Care Proofsheet Corrector Name Role Phone Unavailable Primary Care Provider Unavailabl e Encounter Details Date Type Department Care Team (Late st Contact Info) Description 08/17/2023 Scanned Document [facility] Cardiac Laboratory [address] [place] [id number] Pavan Gao MD [address] [facility] [place] [address] [place], [place] [id number] Social History Tobacco Use Types Packs/Day Years Used Date Smoking Tobacco: Never Assessed Sex and Gender Information Value Date Recorded Sex Assigned at Not on file Gender Identity Not on file Sexual Orientation Not on file documented as of this encounter Plan of Treatment Not on file documented as of this encounter Visit Diagnoses Not on filedocumented in this encounter
--- OUTSIDE RECORDS SUMMARY | 2024-07-04 10:30 | XMS_ITS | Clinical Summary ---
Author Organization [facility] Address [address] [place] [address] Care Team Providers Care I O Psychologist Name Role Phone Unavailable Primary Care Provider Unavailabl e Social History Tobacco Use Types Packs/Day Years Used Date Smoking Tobacco: Never Assessed Sex and Gender Information Value Date Recorded Sex Assigned at Not on file Gender Identity Not on file Sexual Orientation Not on file Plan of Treatment Health Maintenance Due Date Last Done Comments Hepatitis C Virus Screening 1965 HIV Screening 02/13/1977 DTaP/Tdap/Td Vaccines (1 - Tdap) 02/13/1983 Pneumococcal Vaccines 50+ (1 of 1 - PCV) 02/13/2014 Zoster (Shingles) Vaccine (1 of 2) 02/13/2014 COVID-19 Vaccine ( - 2023-2 5 season) 2024 RSV Vaccine 60 years and old er and Patients (1 - 1-dose 75+ series) 02/13/2039 Hepatitis B Vaccines Aged Out No long er eligible based on patient's age to complete this topic Pneumococcal Vaccine: Pediat martina (0-5 Years) and At-Risk Patients (6 to 49 Years) Aged Out No longer eligible b ased on patient's age to complete this topic
== END 2024-07-04 10:18 | disposition home or self-care (01) ==
PROVIDERS: PCP Internal Medicine; Referring Provider Internal Medicine; Visit Provider Registered Nurse Emergency
DX: M54.17 Radiculopathy, lumbosacral region (principal); M47.816 Spondylosis without myelopathy or radiculopathy, lumbar region
CPT/HCPCS: 99204; G2211

== ENCOUNTER → 2024-07-04 09:42 | Outpatient (BNVA) | payer OTHER, SELFPAY | PROVIDERS: PCP Internal Medicine; Referring Provider Internal Medicine; Visit Provider Registered Nurse Emergency | DX: M47.26 Other spondylosis with radiculopathy, lumbar region (principal) | CPT/HCPCS: 99202 ==

== ENCOUNTER 2024-07-25 10:43 | Outpatient (REF) | payer OTHER, SELFPAY ==
--- OUTSIDE RECORDS SUMMARY | 2024-07-25 12:53 | XMS_ITS | Clinical Summary ---
Author Organization [address] [facility] Address [address] [place] [address] Phone Care Team Providers Care Powder Blender Name Role Phone Physician, Pcp Unknown Primary Care Provider Laquita vailable Encounters Date Type Department Care Team Description 07/24/2024 Lab Requisition [facility] - Main Lab [address] [facility] [place] [address] Juan Antonio Gonzlaez MD Gross hematuria from Last 3 Months Social History Tobacco Use Types Packs/Day Years Used Date Smoking Tobacco: Never Assessed Sex and Gender Information Value Date Recorded Sex Assigned at Not on file Legal Sex Male 10:12 AM EDT Gender Identity Not on file Sexual Orientation Not on file Plan of Treatment Health Maintenance Due Date Last Done Comments DTaP,Tdap,and Td Vaccines (1 - Tdap) 02/13/1983 Pneumococcal Vaccine: 50+ Ye ars (1 of 1 - PCV) 02/13/2014 Zoster Vaccines (1 of 2) 02/13/2014 COVID-19 Vaccine ( - 2023-2 5 season) 2024 Influenza Vaccine (#1) 2024 Cholesterol Screening (Lipid Panel) 07/24/2024 Colorectal Cancer Screening: Colonoscopy 07/24/2024 Depression Screening 07/24/2024 HIV Screening 07/24/2024 Hepatitis C Screening 07/24/2024 Social Influencers of Health Screening 07/24/2024 RSV Immunization Patients 60 + Years Old (1 - 1-dose 75+ series) 02/13/2039 HIB Vaccines Aged Out No longer eligi ble based on patient's age to complete this topic HPV Vaccines Aged Out No longer eligi ble based on patient's age to complete this topic Hepatitis A Vaccines Aged Out No long er eligible based on patient's age to complete this topic Hepatitis B Vaccines Aged Out No long er eligible based on patient's age to complete this topic IPV Vaccines Aged Out No longer eligi ble based on patient's age to complete this topic MMR Vaccines Aged Out No longer eligi ble based on patient's age to complete this topic Meningococcal ACWY Vaccine Aged Out N o longer eligible based on patient's age to complete this topic Meningococcal B Vacine Aged Out No lo nger eligible based on patient's age to complete this topic Pneumococcal Vaccine: Pediat rics (0 to 5 Years) and At-Risk Patients (6 to 64 Years) Aged Out No longer eligible b ased on patient's age to complete this topic RSV Immunization Patients Un reshma 20 months Aged Out No longer eligible b ased on patient's age to complete this topic Varicella Vaccines Aged Out No longer eligible based on patient's age to complete this topic Insurance [facility] Care Teams Powder Blender Relationship Specialty Start Date End Date Physician, Pcp Unknown PCP - General 07/24/24
--- OUTSIDE RECORDS SUMMARY | 2024-07-25 12:53 | XMS_ITS | Encounter Summary ---
Author Organization [employer] Address [address] [place] [address] Care Team Providers Care Grocery Packer Name Role Phone Physician, Pcp Unknown Primary Care Provider Laquita vailable Encounter Details Date Type Department Care Team (Late st Contact Info) Description 07/24/2024 Lab Requisition [facility] - Main Lab [address] [facility] [place] [address] Juan Antonio Gonzalez MD [address] [facility] [address] [place] [address] Gross hematuria Social History Tobacco Use Types Packs/Day Years Used Date Smoking Tobacco: Never Assessed Sex and Gender Information Value Date Recorded Sex Assigned at Not on file Legal Sex Male 10:12 AM EDT Gender Identity Not on file Sexual Orientation Not on file documented as of this encounter Plan of Treatment Pending Results Name Type Priority Associated Diagnoses Date /Time Anatomic pathology outside consult Pathology and Cytology Routine Gross hematuria 07/19/2024 12:00 AM EST documented as of this encounter Visit Diagnoses Diagnosis Gross hematuria documented in this encounter Care Teams Grocery Packer Relationship Specialty Start Date End Date Physician, Pcp Unknown PCP - General 07/24/24 documented as of this encounter
--- OUTSIDE RECORDS SUMMARY | 2024-07-25 12:53 | XMS_ITS | Clinical Summary ---
Author Organization [facility] Address [address] [place] [address] Care Team Providers Care Scarf And Anneal Operator Name Role Phone Unavailable Primary Care Provider [...]
--- OUTSIDE RECORDS SUMMARY | 2024-07-25 12:53 | XMS_ITS | Encounter Summary ---
Author Organization [facility] Address [address] [place] [address] Care Team Providers Care Vegetable Farmer Name Role Phone Unavailable Primary Care Provider Unavailabl e Encounter Details Date Type Department Care Team (Late st Contact Info) Description 08/17/2023 Scanned Document [facility] Cardiac Laboratory [address] [place] [id number] Pavan Gao MD [address] [facility] [place] [address] [place], [place] [id number] Social History Tobacco Use Types Packs/Day Years [...]
== END 2024-07-25 10:44 | disposition home or self-care (01) ==
LOC: HO.SH 10:43
PROVIDERS: Visit Provider Internal Medicine
DX: Z46.1 Encounter for fitting and adjustment of hearing aid (principal); H90.3 Sensorineural hearing loss, bilateral
CPT/HCPCS: 92557; 92567

== ENCOUNTER 2024-11-14 10:55 | Outpatient (AMB) | payer OTHER, SELFPAY ==
[2024-11-14 11:12] VITALS: BP 112/84; PULSE 81; O2SAT 95; BMI 26.5
--- NOTE | 2024-11-14 11:12 | MHC.PC.OV ---
Vital Signs 11/14/24 11:12 Height 5 ft 7 in Weight 169 lb 4 oz BMI 26.5 BP 112/84 Blood Pressure Location Lt brachial Position Sitting Pulse 81 Pulse Source Pulse Oximeter Pulse Oximetry (%) 95 Oxygen Delivery Method Room Air Intake Visit Re[facility] Cessation Systems Outreach Specialist Required: No Accompanied by: Self / Same As Patient Allergies No Known Allergies Allergy (Verified 11/14/24 11:38) Medication List - Last Reconciled 11/14/24 by Bartolo Dumont MD doxepin 10 mg PO BEDTIME 30 days lidocaine 5% 1 patch topical DAILY PRN lisinopril 10 mg PO DAILY 90 days methadone 50 mg PO DAILY omeprazole 20 mg PO DAILY 30 days tizanidine 4 mg PO Q8H PRN 30 days Tobacco use date assessed: 11/14/24 Dental Screening Dental Screen Date: 11/14/24 Did you have a dental visit in the last 12 months?: No Did you have a dental problem in the last 6 months where you did not have access to dental care?: No Was dental information given to patient?: No HPI [facility] HPI Details Patient comes in today for his follow up visit States that he still has trouble sleeping at night at times but feels okay overall He denies any headaches or dizziness Denies any chest pains, no SOB No nausea/vomiting, no abdominal pain No change in bowel habits noted States that he also still has on and off pain over his lower back and recurrent sciatica symptoms He was referred to and seen by pain management a few months ago - was sent for physical therapy, which patient states helped He was referred to dermatology for further evaluation of a dark skin lesion on his left temporal area a few months ago but states that he has not heard back from dermatology at all about an appointment being scheduled for him for this Lastly, adds that he's had problems with varicose veins over the back of both his lower legs for a while now and they tend to hurt and bother him a lot when they flare up - would like to see if he can have these checked out and addressed now by a specialist He was not able to get his follow up labs done prior to his appointment today [facility] Medical History Lumbar degenerative disc disease Insomnia Overweight (BMI 25.0-29.9) Right groin pain Memory loss Overweight Smoker History of hepatitis C History of substance abuse Recurrent prostate cancer (~2019) Benign essential hypertension Hx of radiation therapy History of prostate cancer Hx of irritable bowel syndrome Hepatitis Asthma Surgical History History of surgery on arm Hx of prostate biopsy Hx of right inguinal hernia repair H/O colonoscopy Family History Brother Prostate cancer Mother Diabetes Social History Housing: Apartment Alcohol intake: current Alcohol intake frequency: holidays/special occasions only Patient Tobacco Use Status: Former Tobacco user (2021) Tobacco use type: Cigarette Cigarettes Per Day: 3 e-Cigarette/Vaping Use: Never Used Second Hand Smoke Exposure: Yes Substance Use Type: Marijuana service: No Current occupational status: disabled Cognitive needs: No Hearing needs: Yes Vision needs: Yes Questionnaire PHQ-9 Over the last 2 weeks, how often have you been bothered by any of the following problems? 1. Little interest or pleasure in doing things: not at all 2. Feeling down, depressed, or hopeless: not at all 3. Trouble falling or staying asleep, or sleeping too much: more than half the days 4. Feeling tired or having little energy: more than half the days 5. Poor appetite or overeating: more than half the days 6. Feeling bad about yourself - or that you are a failure or have let yourself or your family down: not at all 7. Trouble concentrating on things, such as reading the newspaper or watching television: not at all 8. Moving or speaking so slowly that other people could have noticed. Or the opposite - being so fidgety or restless that you have been moving around a lot more than usual: not at all 9. Thoughts that you would be better off or of hurting yourself in some way: not at all Total score: 6 Depression Screening Interpretation: Positive Depression Screening Follow-up: Existing condition and Follow-up Visit Requested Depression Screening Done: Yes [id number] - PHQ-9 Billing: Yes Source: Developed by Drs. Jamal Grove, Antionette B.WCompa Burrell and colleagues, with an educational nikki from [employer]. Thrive Questionnaire Date Thrive assessed: 11/14/24 I am a: Patient What is your living situation today?: I have a steady place to live Within the past 12 months, did the food you bought not last and you didn't have the money to get more?: Never true Within the past 12 months, did you worry whether your food would run out before you got money to buy more?: Never true Do you have trouble paying for medicines?: No Do you have trouble getting transportation to medical appointments?: No Do you have trouble paying your heating and electricity bill?: No Do you have trouble taking care of your child, family member or friend?: No Do you have trouble with day-to-day activities such as bathing, preparing meals, shopping, managing finances, etc.?: No Are you currently unemployed and looking for a job?: Yes Are you interested in more education?: No Please select the resources that you would like help with: None Currently or been in a relationship where the following occur: No concerns reported THRIVE Score: 0 AUDIT C Alcohol Use Questionnaire (AUDIT-C) 1. How often do you have a drink containing alcohol?: Never 3. How often do you have six or more drinks on one occasion?: Never Total Score: 0 Score Reviewed/Action Taken: Yes MERCEDES-7 AMB Questionnaire MERCEDES-7 Date MERCEDES - 7 assessed: 11/14/24 Feeling nervous, anxious, or on edge: 0 = Not at all Not being able to stop or control worryin = Not at all Worrying too much about different things: 0 = Not at all Trouble relaxin = Not at all Being so restless that it is hard to sit still: 0 = Not at all Becoming easily annoyed or irritable: 0 = Not at all Feeling afraid as if something awful might happen: 0 = Not at all Total MERCEDES-7 score (0-4 normal; 5-9 mild; 10-14 moderate; 15-21 severe): 0 Source: Developed by Drs. Jamal Grove, Compa Faye and colleagues, with an educational nikki from [employer]. Review of Systems Const Reports difficulty sleeping, Denies fatigue, Denies fever(s) and Denies headache(s) ENT Denies dysphagia, Denies dizziness, Denies otalgia, Denies headache(s), Reports hearing loss, Denies neck pain, Denies odynophagia and Denies sore throat Card Denies chest pain, Denies irregular heart rhythm, Denies palpitations and Denies dyspnea Resp Denies chest congestion, Denies cough and Denies dyspnea GI Denies abdominal pain, Denies constipation, Denies dysphagia, Denies heartburn, Denies diarrhea, Denies nausea, Denies odynophagia and Denies vomiting Denies difficulty urinating, Denies dysuria and Denies urinary frequency Musc Reports back pain (over the lower back), Denies arthralgias and Denies neck pain Skin/Breast Details: (+) dark and slightly raised skin lesion on the left temporal area Denies rash Neuro Denies dizziness, Denies headache(s) and Denies paresthesias Psych Reports anxiety Endo Denies fatigue and Denies palpitations Travis/Lymph Details: (+) varicose veins on both legs, mostly over the back of the legs Physical exam (Primary Care) Vital Signs: Last Vital Signs Pulse 81 11/14/24 11:12 BP 112/84 11/14/24 11:12 Pulse Ox 95 11/14/24 11:12 Oxygen Delivery Method Room Air 11/14/24 11:12 BMI result Body Mass Index 26.5 Tobacco/Smoking Status: Tobacco use Status Tobacco use date assessed 11/14/24 11/14/24 11:16 Patient Tobacco Use Status Former Tobacco user (2021) 11/14/24 11:16 Tobacco use type Cigarette 11/14/24 11:16 e-Cigarette/Vaping Use Never Used 11/14/24 11:16 PHQ-9: PHQ-9 Score PHQ-9: Total score 6 11/14/24 11:16 Depression Screening Interpretation: Positive Depression Screening Follow-up: Existing condition and Follow-up Visit Requested Thrive Assessment: Date of Thrive Assessment Date Thrive assessed 11/14/24 11/14/24 11:16 Currently or been in a relationship where the following occur: No concerns reported Const General: no acute distress and alert HENMT Ears: TM's normal bilaterally and EAC's normal Throat: Yes posterior oropharynx normal and Yes tonsils normal (no TP congestion) Neck Neck: Yes supple and No lymphadenopathy Thyroid: Thyroid normal Resp Auscultation: clear to auscultation bilaterally, no rales and no wheezes Cardio Rate: regular rate Rhythm: regular rhythm Heart sounds: no murmurs GI Palpation (GI): Soft to palpation and nontender Auscultation: normal bowel sounds General: Yes no CVA tenderness Back/Spine/Pelvis Back: no CVA tenderness Thoracic/Lumbar Spine: lumbar spinal tenderness Sacroiliac joints: bilaterally tender to palpation Skin Other: (+) hyperpigmented and slightly raised lesion on the left temporal area Rashes: no rashes Extrem Other: (+) extensive varicose veins over the back of both proximal lower legs General: Yes no clubbing, cyanosis or edema Coding Level of Care Code Est Pt Level 4 (60998) Diagnoses Degeneration of intervertebral disc of lumbar region with discogenic back pain and lower extremity pain M51.362 Disc-related pain type: discogenic back pain and lower extremity pain Benign essential hypertension I10 Recurrent prostate cancer C61 Elevated LFTs R79.89 Hyperpigmented skin lesion L81.9 Varicose veins of bilateral lower extremities with pain I83.813 Gastritis without bleeding, unspecified chronicity, unspecified gastritis type K29.70 Gastritis type: unspecified gastritis Chronicity: unspecified Gastritis bleeding: without bleeding History of hepatitis C Z86.19 History of substance abuse F19.11 Insomnia, unspecified type G47.00 Insomnia type: unspecified Overweight (BMI 25.0-29.9) E66.3 Additional Codes PHQ-9 - 02025 - PHQ-9 Billing: Yes ([id number]) Assessment & Plan Assessment & Plan (1) Lumbar degenerative disc disease: Code(s): M51.369 - Other intervertebral disc degeneration, lumbar region without mention of lumbar back pain or lower extremity pain Category: Medical Qualifiers: Disc-related pain type: discogenic back pain and lower extremity pain Qualified Code(s): M51.362 - Other intervertebral disc degeneration, lumbar region with discogenic back pain and lower extremity pain Plan: Patient was referred to and seen by pain management a few months ago for his recurrent low back pain and sciatica symptoms His lumbar spine x-rays done on 05/15/2024 revealed (+) degenerative disc changes at the L5-S1 disc level. There is mild ventral spondylosis at L3-4, L4-5 and L5-S1 disc levels He was sent for physical therapy, which patient states have helped somewhat Reinforced activity and weight-lifting restrictions Continue Lidocaine 5% patches topically QD PRN and Tizanidine 4 mg Q 8 hours PRN (2) Benign essential hypertension: Code(s): I10 - Essential (primary) hypertension Category: Medical Plan: Reinforced low sodium diet - goal is systolic BP of 120 mm or less Continue Lisinopril 10 mg QD He was not able to get his follow up labs done prior to his appt today - will just have him recheck his labs in 4 months for follow up (3) Recurrent prostate cancer: Onset Date: ~2018 Code(s): C61 - Malignant neoplasm of prostate Category: Medical Plan: He had external beam radiation therapy and PET scan in January 2022 suggested increased uptake in the pelvic LN consistent with N1 disease TRUSP Bx done in February 2022 was negative for prostate malignancy and he was recommended to continue with observation at the time Follow up PET scan in March 2023 revealed borderline decrease in size and uptake in the right external iliac LN with additional tiny right pelvic sidewall LN with faint uptake suggesting metastatic prostate malignancy Follow up with urology as scheduled (4) Elevated LFTs: Code(s): R79.89 - Other specified abnormal findings of blood chemistry Category: Medical Plan: His LFTs were normal when last checked late last year Patient states that he does not drink alcohol Will continue to monitor his LFTs regularly He was supposed to have follow up labs done prior to his appointment today but he forgot again Will just have him get these done before his next PE appointment in 4 months (5) Hyperpigmented skin lesion: Code(s): L81.9 - Disorder of pigmentation, unspecified Category: Medical Plan: Patient was previously referred to dermatology for further evaluation and management of the hyperpigmented and raised lesion on his left temporal area but he has not heard back from dermatology at all and has no appointment scheduled yet States that this has been present for years now and he is concerned about potential malignancy due to the appearance of the lesion/mole Will have patient try to reach out to Dr. Hernandez' office personally (previous referral printed and handed to patient) to see if they can try to schedule him and get him in to see him JULISA (6) Varicose veins of bilateral lower extremities with pain: Code(s): I83.813 - Varicose veins of bilateral lower extremities with pain Category: Medical Plan: Will refer him to vascular surgery for further evaluation and management (7) Gastritis: Code(s): K29.70 - Gastritis, unspecified, without bleeding Category: Medical Qualifiers: Gastritis type: unspecified gastritis Chronicity: unspecified Gastritis bleeding: without bleeding Qualified Code(s): K29.70 - Gastritis, unspecified, without bleeding Plan: Dietary restrictions reinforced Continue Omeprazole 20 mg QD (8) History of hepatitis C: Comment: S/P Tx with Mavyret Code(s): Z86.19 - Personal history of other infectious and parasitic diseases Category: Medical Plan: S/P Tx with Mavyret Follow up with Dr. Stahl as scheduled for continuing surveillance and management (9) History of substance abuse: Code(s): F19.11 - Other psychoactive substance abuse, in remission Category: Medical Plan: Continue Methadone 50 mg QD Follow up with the Methadone clinic as scheduled (10) Insomnia: Code(s): G47.00 - Insomnia, unspecified Category: Medical Qualifiers: Insomnia type: unspecified Qualified Code(s): G47.00 - Insomnia, unspecified Plan: Sleep hygiene reinforced Continue Doxepin 10 mg Q HS PRN (11) Overweight (BMI 25.0-29.9): Code(s): E66.3 - Overweight Category: Medical Plan: Reinforced diet/exercise as tolerated/lose weight Plan To return as scheduled in 4 months for his next annual physical examination Orders: Orders Complete Blood Count Auto Diff 02/26/25 D64.9 - Anemia, unspecified, Z00.00 - Encounter for general adult medical examination without abnormal findings Comprehensive Ewing. Panel Fast 02/26/25 E78.00 - Pure hypercholesterolemia, unspecified, Z00.00 - Encounter for general adult medical examination without abnormal findings TSH reflex Free T4 02/26/25 E78.00 - Pure hypercholesterolemia, unspecified, Z00.00 - Encounter for general adult medical examination without abnormal findings UA CC w/rflx Micro + Cult 02/26/25 R30.0 - Dysuria, Z00.00 - Encounter for general adult medical examination without abnormal findings Vitamin D 25-OH Total 02/26/25 E55.9 - Vitamin D deficiency, unspecified, Z00.00 - Encounter for general adult medical examination without abnormal findings Prostate Specific Antigen 02/26/25 N40.0 - Benign prostatic hyperplasia without lower urinary tract symptoms, Z00.00 - Encounter for general adult medical examination without abnormal findings Hemoglobin A1c 02/26/25 R73.01 - Impaired fasting glucose, Z00.00 - Encounter for general adult medical examination without abnormal findings Lipid Panel 02/26/25 E78.00 - Pure hypercholesterolemia, unspecified, Z00.00 - Encounter for general adult medical examination without abnormal findings Referrals Vascular Surgery Referral I83.813 - Varicose veins of bilateral lower extremities with pain
--- OUTSIDE RECORDS SUMMARY | 2024-11-14 12:07 | XMS_ITS | Clinical Summary ---
Author Organization [address] [facility] Address [address] [place] [address] Phone Care Team Providers Care Physician Relations Representative Name Role Phone Physician, Pcp Unknown Primary Care Provider Laquita vailable Social History Tobacco Use Types Packs/Day Years [...] Vaccines (1 of 2) 02/13/2014 COVID-19 Vaccine (1 - 2023-2 5 season) 2024 Cholesterol Screening (Lipid Panel) 07/24/2024 Colorectal Cancer Screening: Colonoscopy 07/24/2024 Depression Screening 07/24/2024 HIV Screening 07/24/2024 Hepatitis C Screening 07/24/2024 Social Influencers of Health Screening 07/24/2024 Influenza Vaccine (#1) 2025 RSV Immunization Adult Patie nts (1 - 1-dose 75+ series) 02/13/2039 HIB [...] age to complete this topic Meningococcal B Vaccine Aged Out No l onger eligible based on patient's age to complete [...] patient's age to complete this topic Insurance [facility] MEDICAID Care Teams Physician Relations Representative Relationship Specialty Start Date End Date Physician, Pcp Unknown PCP - General 07/24/24
--- OUTSIDE RECORDS SUMMARY | 2024-11-14 12:07 | XMS_ITS | Encounter Summary ---
Author Organization [facility] Address [address] [place] [address] Care Team Providers Care Semiconductor Processor Name Role Phone Unavailable Primary Care Provider Unavailabl e Encounter Details Date Type Department Care Team (Late st Contact Info) Description 08/17/2023 Scanned Document [facility] [address] [place] [id number] Pavan Gao MD [address] [facility] [address] [place] [address] Social History Tobacco Use Types Packs/Day Years Used Date Smoking Tobacco: Never Assessed Sex and Gender Information Value Date Recorded Sex Assigned at Not on file Legal Sex Male 6:29 PM EST Gender Identity Not on file Sexual Orientation Not on file documented as of this encounter Plan of Treatment Not on file documented as of this encounter Visit Diagnoses Not on filedocumented in this encounter
== END 2024-11-14 11:46 | disposition home or self-care (01) ==
LOC: HO.HMCH 10:55
PROVIDERS: PCP Internal Medicine; Visit Provider Internal Medicine
DX: I10 Essential (primary) hypertension (principal); C61 Malignant neoplasm of prostate; M51.362 Other intervertebral disc degeneration, lumbar region with discogenic back pain and lower extremity pain; F19.11 Other psychoactive substance abuse, in remission; R79.89 Other specified abnormal findings of blood chemistry; L81.9 Disorder of pigmentation, unspecified; I83.813 Varicose veins of bilateral lower extremities with pain; K29.70 Gastritis, unspecified, without bleeding; Z86.19 Personal history of other infectious and parasitic diseases; G47.00 Insomnia, unspecified; E66.3 Overweight

== ENCOUNTER → 2024-11-14 10:55 | Outpatient (BNVA) | payer OTHER, SELFPAY | PROVIDERS: PCP Internal Medicine; Visit Provider Internal Medicine | DX: M51.362 Other intervertebral disc degeneration, lumbar region with discogenic back pain and lower extremity pain (principal); I10 Essential (primary) hypertension; R79.89 Other specified abnormal findings of blood chemistry; I83.813 Varicose veins of bilateral lower extremities with pain; K29.70 Gastritis, unspecified, without bleeding; F19.11 Other psychoactive substance abuse, in remission; G47.00 Insomnia, unspecified; E66.3 Overweight; Z85.46 Personal history of malignant neoplasm of prostate; Z86.19 Personal history of other infectious and parasitic diseases; Z68.26 Body mass index [BMI] 26.0-26.9, adult | CPT/HCPCS: 96127; 99212 ==

== ENCOUNTER 2024-11-16 09:07 | Outpatient (AMB) | payer OTHER, SELFPAY ==
[2024-11-16 09:21] VITALS: BMI 26.5
--- NOTE | 2024-11-16 09:21 | MHC.OFFVIS ---
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 Pt states he has been experiencing pain in his left leg and states both legs itch. Pt denies any swelling. 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 Complaints include pain/itching over varicosities, swelling of lower extremities, cramping, fatigue, and heaviness of the lower extremities. It has been affecting their daily activities including walking, standing, and physical activity. It is noted more so in the left leg. He states he has had spider/varicose veins for years but recently they have become more painful and itchy. He states the ones on his left upper posterior thigh are the worse, most painful/itchy. He states he is very active. He is a former smoker and is not a diabetic. There is no hx of blood clots or family hx of clotting disorders. Patient denies any previous venous surgery or injections. Patient denies any history of DVT/ PE. Patient denies any history of phlebitis. Trial of compression includes - nothing currently They now present for vascular evaluation regarding their varicose veins. PFS Medical History Lumbar degenerative disc disease Insomnia Overweight (BMI 25.0-29.9) Right groin pain Memory loss Overweight Smoker History of hepatitis C History of substance abuse Recurrent prostate cancer (~2019) Benign essential hypertension Hx of radiation therapy History of prostate cancer Hx of irritable bowel syndrome Hepatitis Asthma Surgical History History of surgery on arm Hx of prostate biopsy Hx of right inguinal hernia repair H/O colonoscopy Family History Brother Prostate cancer Mother Diabetes Social History Housing: Apartment Alcohol intake: current Alcohol intake frequency: holidays/special occasions only Patient Tobacco Use Status: Former Tobacco user (2021) Tobacco use type: Cigarette Cigarettes Per Day: 3 e-Cigarette/Vaping Use: Never Used Second Hand Smoke Exposure: Yes Substance Use Type: Marijuana service: No Current occupational status: disabled Cognitive needs: No Hearing needs: Yes Vision needs: Yes Review of Systems Const Reports as per HPI and Denies weakness ENT Reports Normal hearing present and Denies dizziness Card Reports as per HPI, Denies chest pain, Denies chest pain at rest, Denies chest pain with activity, Denies dyspnea and Denies dyspnea on exertion Resp Reports as per HPI, Denies cough, Denies dyspnea and Denies dyspnea on exertion GI Reports as per HPI, Denies abdominal pain, Denies nausea and Denies vomiting Musc Denies numbness Skin/Breast Reports as per HPI, Denies erythema and Denies wounds Neuro Reports Normal hearing present, Denies dizziness, Denies numbness, Denies Sensory deficit (Neuro) and Denies weakness Psych Reports no additional complaints Endo Reports no additional complaints Physical Exam Vital Signs: BMI result Body Mass Index 26.5 Const General: healthy appearing and no acute distress Orientation/consciousness: patient oriented x3 HEENT Head: Yes normal to inspection Ears: hearing grossly normal bilaterally Mouth: Normal oral and palatal mucosa present Resp Effort & Inspection: normal respiratory effort and able to speak in complete sentences Auscultation: clear to auscultation bilaterally Cardio Jugular venous distension: no JVD Rate: regular rate Rhythm: regular rhythm Heart sounds: S1 normal heart sound present and S2 normal heart sound present Bruits: no abdominal aortic bruits, no carotid bruits, no femoral bruits and no renal bruits Peripheral pulses: Peripheral pulses 2+ throughout GI Inspection: Yes normal to inspection Palpation (GI): No Abdominal aortic bruit present Skin General skin exam: no rashes or lesions noted Wounds: no wounds Hair: normal Neuro General: patient oriented x3 Cranial nerves: Yes Normal hearing present Cognition (Neuro): normal cognition Gait exam (Neuro): Normal gait present Motor exam (neuro): 5/5 motor strength present throughout Sensory Exam: No Sensory deficit (Neuro) Extrem Other: Left lower extremity: clusters of telangiectases noted on the posterior upper thigh (painful to palpation) above the knee as well as on the anterior thigh towards the groin. Trace peripheral edema noted. Right lower extremity: clusters of telangiectases noted on the anterior upper thigh above the knee (painful to palpation) and towards the groin. Trace peripheral edema noted. CEAP: C - 3 E - primary A - superficial P - reflux General: Yes normal to inspection, Yes full ROM, Yes capillary refill normal and Yes normal gait Assessment & Plan Assessment & Plan (1) Varicose veins of both lower extremities with inflammation: Code(s): I83.11 - Varicose veins of right lower extremity with inflammation; I83.12 - Varicose veins of left lower extremity with inflammation Category: Medical Plan: Atilio is presenting today on a referral from his PCP for concerns of VV with pain and inflammation. In short, the patient has evidence of venous insufficiency. I have discussed the pathophysiology with the patient. In addition I have provided informational material regarding venous disease to the patient. We have discussed conservative measures including compression, elevation, and exercise. I have taken the liberty of ordering venous insufficiency testing with the patient. They will follow up with me after testing. The patient had an opportunity to ask questions regarding the treatment plan. All questions were answered. Imaging studies, laboratory studies and physical exam results were discussed and reviewed in detail. No major barriers to understanding were identified. The patient expressed understanding and agreement with the above treatment plan. The patient is aware they should contact our office by phone for worsening of the current condition or the appearance of new symptoms. Thank you for allowing me to participate in the vascular care of this patient. If you have any questions or concerns regarding the treatment for the above condition please do not hesitate to contact me. The office telephone contact is [phone]. This note is constructed using voice recognition software. While every effort has been made to ensure accuracy, private duty rn errors may have been included. Thank you for allowing me to participate in the care of your patient. Yours sincerely, BARRETT Hoff Orders: Orders US venous duplex LE BI 1 Week I83.11 - Varicose veins of right lower extremity with inflammation, I83.12 - Varicose veins of left lower extremity with inflammation Coding Level of Care Code New Pt Level 4 (02652) Diagnoses Varicose veins of both lower extremities with inflammation I83.11; I83.12
--- OUTSIDE RECORDS SUMMARY | 2024-11-16 09:24 | XMS_ITS | Clinical Summary ---
Author Organization [address] [facility] Address [address] [place] [address] Phone Care Team Providers Care Director Of Collections Name Role Phone Physician, Pcp Unknown Primary [...] patient's age to complete this topic Insurance [facility] MEDICAID Care Teams Director Of Collections Relationship Specialty Start Date End Date Physician, Pcp Unknown PCP - General 07/24/24
--- OUTSIDE RECORDS SUMMARY | 2024-11-16 09:24 | XMS_ITS | Encounter Summary ---
Author Organization [facility] Address [address] [place] [address] Care Team Providers Care Aircraft Skin Burnisher Name Role Phone Unavailable Primary Care Provider Unavailabl e Encounter Details Date Type Department Care Team (Late st Contact Info) Description 08/17/2023 Scanned Document [facility] Cardiac Laboratory [address] [place] [id number] Pavan Gao MD [address] [facility] [place] [address] [place] [address] Social History Tobacco Use Types Packs/Day Years [...]
== END 2024-11-16 09:30 | disposition home or self-care (01) ==
LOC: HO.HVS 09:08
PROVIDERS: PCP Internal Medicine; Visit Provider Physician Assistant Surgical
DX: I83.11 Varicose veins of right lower extremity with inflammation (principal); I83.12 Varicose veins of left lower extremity with inflammation
CPT/HCPCS: 99204

== ENCOUNTER → 2024-11-16 09:07 | Outpatient (BNVA) | payer OTHER, SELFPAY | PROVIDERS: PCP Internal Medicine; Visit Provider Physician Assistant Surgical | DX: M79.605 Pain in left leg (principal); I83.11 Varicose veins of right lower extremity with inflammation; I83.12 Varicose veins of left lower extremity with inflammation | CPT/HCPCS: 99202 ==

== ENCOUNTER 2025-01-16 08:41 | Outpatient (AMB) | payer OTHER, SELFPAY ==
[2025-01-16 08:51] VITALS: BP 156/92; PULSE 106; O2SAT 96; BMI 26.9
--- NOTE | 2025-01-16 08:51 | MHC.OFFVIS ---
Vital Signs 01/16/25 08:51 Height 5 ft 7 in Weight 172 lb BMI 26.9 BP 156/92 H Blood Pressure Location Rt brachial Position Sitting Pulse 106 H Pulse Source Pulse Oximeter Pulse Oximetry (%) 96 Oxygen Delivery Method Room Air Intake Visit Reasons: [facility] scrn. Recall x3 years (Murguia) Intake Note: NEW PATIENT for recall colo q3 years. Last with Dr. Murguia 2020. Chief Complaint; Pt denies any GI sx or concerns today. Certified Solid Waste Facility Operator Required: No Accompanied by: Self / Same As Patient Allergies No Known Allergies Allergy (Verified 01/16/25 08:52) HPI HPI [facility] scrn. Recall x3 years (Blade): Details: LAST VISIT 06/06/2020 COLONOSCOPY FINDINGS: Digital rectal exam revealed no specific lesion. Video colonoscope was introduced without difficulty. It was navigated into the rectosigmoid, sigmoid, on up through descending, transverse, ascending colon down into the cecum. Prep was good. There was moderate amount of flushing and some residual fluid. Two polyps were identified in the cecum. These were removed. There was ascending colon polyp that was not retrieved. The suctioned fluid was submitted as a question of fragmented polyp. Adjacent to this, there was questionable serrated changes and this was biopsied. In the mid transverse colon, a polyp was seen, however despite the use of glucagon as well as re-looking at the area multiple times, this was not re-visualized, estimated size of this was 2 to 3 mm. Anorectal verge was clear. There were 2+ internal hemorrhoids noted. PLAN: This patient's repeat colonoscopy should be in 3 years. I would suggest a vigorous 2-day prep to clear out any fluid, and if spasm persists, the use of glucagon would be recommended as well. I will review the histological findings from the path report and make any appropriate adjustments. He will be either seen in followup by either Televisit or in-person. * Biopsy A. Cecum, polypectomies: Fragments of tubular adenomas; no high-grade dysplasia or carcinoma seen. B. Colon, ascending, polypectomy: Fragments of tubular adenoma; no high-grade dysplasia or carcinoma seen. C. Colon, ascending thickened fold, biopsy: Sessile serrated polyp. TODAY'S VISIT 11:14 answers, he is not home and will call us when he returns. Ana Luisa #[id number], 11:49, no ans, LVM The procedure needs to be repeated in 3 years and he will need a 2 day prep. They also need to use glucagon to decrease colonic spasm. We have placed phone tag several times I finally called back at about 10 past 1 in his answered and said they had another family emergency and asked if I could leave the information with her. I did explain to her about the polyps that we need to repeat the procedure in 3 years. She says her his older brother in it was likely colon cancer not too long ago so obviously this is a high genetic risk. She was educated to let any siblings or any children no they should be screened by age 45 to keep them healthy. He felt the procedure went well the only problem he had was nausea and vomiting after awakening. I told her we can easily take care of that by premedicating him next time so that can be more comfortable. She is aware that I am putting in a 3 year recall list and if he has any additional questions or concerns he is absolutely free to call the office. TODAY'S VISIT: Patient is here today to discuss going for colonoscopy. Last colonoscopy 2020 tubular adenoma found without high-grade dysphagia or carcinoma. Patient is on methadone and feels constipated is as times. Currently is not taking any laxative. Bowel movements every 2-3 days. Patient denies melena, hematochezia, unintentional weight loss or ribbon axis if patient denies any dyspepsia, dysphagia or odynophagia. He is taking omeprazole daily. States that for the most part is helping. Patient states that if he stops medication for 2-3 days he will have reflux. Patient denies any history of sleep apnea. Not on any anticoagulation medication. Patient denies any cardiac or respiratory symptoms [facility] Medical History (Updated 01/16/25 @ 09:19 by Nikky Willis [facility]) GERD (gastroesophageal reflux disease) Lumbar degenerative disc disease Insomnia Overweight (BMI 25.0-29.9) Right groin pain Memory loss Overweight Smoker History of hepatitis C History of substance abuse Recurrent prostate cancer (~2018) Benign essential hypertension Hx of radiation therapy History of prostate cancer Hx of irritable bowel syndrome Hepatitis Asthma Surgical History History of surgery on arm Hx of prostate biopsy Hx of right inguinal hernia repair H/O colonoscopy Family History Brother Prostate cancer Mother Diabetes Social History Housing: Apartment Alcohol intake: current Alcohol intake frequency: holidays/special occasions only Patient Tobacco Use Status: Former Tobacco user (2021) Tobacco use type: Cigarette Cigarettes Per Day: 3 e-Cigarette/Vaping Use: Never Used Second Hand Smoke Exposure: Yes Substance Use Type: Marijuana service: No Current occupational status: disabled Cognitive needs: No Hearing needs: Yes Vision needs: Yes Review of Systems Const Denies weight gain and Denies weight loss ENT Reports no additional complaints, Denies dysphagia and Denies odynophagia Card Reports no additional complaints Resp Reports no additional complaints GI Denies abdominal pain, Denies belching, Denies melena, Denies bloating, Denies change in bowel habits, Denies dysphagia, Denies excessive flatus, Denies dyspepsia, Denies heartburn, Denies diarrhea, Denies loose stools, Denies nausea, Denies odynophagia and Denies vomiting Reports no additional complaints Musc Reports no additional complaints Neuro Reports no additional complaints Psych Reports no additional complaints Endo Reports no additional complaints Physical Exam Vital Signs: Last Vital Signs Pulse 106 H 01/16/25 08:51 BP 156/92 H 01/16/25 08:51 Pulse Ox 96 01/16/25 08:51 Oxygen Delivery Method Room Air 01/16/25 08:51 BMI result Body Mass Index 26.9 Const General: healthy appearing, no acute distress and well developed Nutritional Appearance: well nourished Orientation/consciousness: patient oriented x3 Resp Effort & Inspection: normal respiratory effort, able to speak in complete sentences, no tracheal deviation and symmetric chest movement Auscultation: clear to auscultation bilaterally Cardio Rate: regular rate GI Inspection: Yes normal to inspection and No distended Palpation (GI): Soft to palpation, not firm, nontender and No hepatosplenomegaly present Auscultation: normal bowel sounds General: Yes no CVA tenderness Back/Spine/Pelvis Back: no CVA tenderness Skin General skin exam: elasticity normal, turgor normal and dry skin Neuro General: patient oriented x3 Psych Appearance: grossly normal Mental Status: mental status grossly normal Assessment & Plan Assessment & Plan (1) Tubular adenoma of colon: Code(s): D12.6 - Benign neoplasm of colon, unspecified Category: Medical (2) Colon cancer screening: Code(s): Z12.11 - Encounter for screening for malignant neoplasm of colon Category: Medical (3) GERD (gastroesophageal reflux disease): Code(s): K21.9 - Gastro-esophageal reflux disease without esophagitis Category: Medical Qualifiers: Esophagitis presence: esophagitis presence not specified Qualified Code(s): K21.9 - Gastro-esophageal reflux disease without esophagitis Plan Patient will start taking Dulcolax daily. After last colonoscopy patient vomited after waking of from anesthesia. If might of been because he has not empty completely. Had suboptimal prep. May premedicated with scopolamine patch. What to expect before the inguinal for procedure discussed with patient. Stressed the importance of good bowel prep and clear liquid diet day before procedure. Patient denies any cardiac or respiratory symptoms. Patient will follow-up with us after the procedure, sooner on as needed basis. He is agreeable to this plan and verbalizes understanding of instructions. He was given the opportunity to ask questions and all questions answered. Thank you for allowing me to participate in his care Medications: New bisacodyl (Dulcolax (bisacodyl)) 10 mg (2 x 5 mg) PO BEDTIME 180 tabs 4RF polyethylene glycol 3350 (Miralax) As directed by gastroenterology department at [facility] 238 grams PO ONCE 238 grams 0RF Z12.11 - Encounter for screening for malignant neoplasm of colon Coding Level of Care Code New Pt Level 3 (38970) Diagnoses Tubular adenoma of colon D12.6 Colon cancer screening Z12.11 Gastroesophageal reflux disease, unspecified whether esophagitis present K21.9 Esophagitis presence: esophagitis presence not specified Time Spent (min) 40 Comment 30 minutes spent with patient and additional 10 minutes spent reviewing his records
--- OUTSIDE RECORDS SUMMARY | 2025-01-16 09:29 | XMS_ITS | Encounter Summary ---
Author Organization [facility] Address [address] [place] [address] Care Team Providers Care Paper Stacker Name Role Phone Unavailable Primary Care Provider Unavailabl e Encounter Details Date Type Department Care Team (Late st Contact Info) Description 08/17/2023 Scanned Document [facility] Cardiac Laboratory [address] [place] [id number] Pavan Gao MD 85 [facility] [place] [address] [place] [address] Social History Tobacco Use Types Packs/Day Years [...]
--- OUTSIDE RECORDS SUMMARY | 2025-01-16 09:29 | XMS_ITS | Clinical Summary ---
Author Organization [address] [facility] Address [address] [place] [address] Phone Care Team Providers Care Rn Bone Marrow Transplant Name Role Phone Physician, Pcp Unknown Primary [...] Vaccine (1 - 2023-2 5 season) 2024 Depression Screening 05/17/2024 Cholesterol Screening (Lipid Panel) 07/24/2024 Colorectal Cancer Screening: Colonoscopy 07/24/2024 HIV Screening 07/24/2024 Hepatitis C Screening [...] patient's age to complete this topic Insurance [facility] MEDICAID Care Teams Rn Bone Marrow Transplant Relationship Specialty Start Date End Date Physician, Pcp Unknown PCP - General 07/24/24
--- OUTSIDE RECORDS SUMMARY | 2025-01-16 09:29 | XMS_ITS | Clinical Summary ---
Author Organization [facility] Address [address] [place] [address] Care Team Providers Care Transactional Attorney Name Role Phone Unavailable Primary Care Provider [...]
--- OUTSIDE RECORDS SUMMARY | 2025-01-16 09:29 | XMS_ITS | Encounter Summary ---
Author Organization [facility] Address [address] [place] [address] Care Team Providers Care Enrolled Agent Name Role Phone Physician, Pcp Unknown Primary Care Provider Laquita vailable Encounter Details Date Type Department Care Team (Late st Contact Info) Description 07/24/2024 Lab Requisition [facility] - Main Lab [address] [facility] [place] [place] [address] Juan Antonio Gonzalez MD [address] [facility] [address] [place] [address] Gross hematuria Social History Tobacco Use Types Packs/Day Years Used Date Smoking Tobacco: Never Assessed Sex and Gender Information Value Date Recorded Sex Assigned at Not on file Legal Sex Male 10:12 AM EDT Gender Identity Not on file Sexual Orientation Not on file documented as of this encounter Plan of Treatment Not on file documented as of this encounter Procedures Procedure Name Priority Date/Time Associated Diagnosis Comments AP OUTSIDE CONSULT Routine 07/19/2024 12 :00 AM EST Gross hematuria documented in this encounter Results * Anatomic pathology outside consult (07/19/2024 12:00 AM EST) Addendum Results of UroVysion fluorescence in situ hybridization (FISH) testing: CEP3: Normal CEP7: Normal CEP17: Normal LSI 9p21: Normal Interpretation: Normal profile Controls stained appropriately. Note: The results are intended as a screening device and should be interpreted in association with other clinical and pathological findings. 08/02/2024 1:45 PM EDT [facility] Addendum electronically signed by Nael Bhagat MD on 08/02/2024 at 1:44 PM Final Diagnosis A. Urine, Voided, ([id number]): Negative for high grade urothelial carcinoma. Note: UroVysion testing to follow. 08/02/2024 1:45 PM EDT [facility] Clinical Information Gross hematuria R31.0 Urine Cytology/FISH (now) 08/02/2024 1:45 PM EDT [facility] Gross Description A. Urine, Voided, ([id number]): Received one ThinPrep slide for cytology and one ThinPrep slide for [facility] FISH 08/02/2024 1:45 PM EDT [facility] Disclaimer Unless otherwise specified, all tissue is 10% NB formalin fixed and paraffin embedded. Technical pathology services provided by [facility] at [address] [place] [address] [address], [place] [address] (CLIA #[id number]/Marlene Hernández MD, [place]) 08/02/2024 1:45 PM EDT [facility] Tissue Urine specimen from urethra / Unknown 07/19/2024 07/24/2024 10:28 AM EDT us Juan Antonio Gonzalez MD LAB PATHOLOGY ORDERAB LES Edited Result - Final [facility] [address] [place] [address], documented in this encounter Visit Diagnoses Diagnosis Gross hematuria documented in this encounter Care Teams Enrolled Agent Relationship Specialty Start Date End Date Physician, Pcp Unknown PCP - General 07/24/24 documented as of this encounter
== END 2025-01-16 09:16 | disposition home or self-care (01) ==
LOC: HO.HGI 08:42
PROVIDERS: PCP Internal Medicine; Visit Provider Nurse Practitioner Family
DX: Z12.11 Encounter for screening for malignant neoplasm of colon (principal); Z86.0101 Personal history of adenomatous and serrated colon polyps; Z01.818 Encounter for other preprocedural examination; K21.9 Gastro-esophageal reflux disease without esophagitis
CPT/HCPCS: 99203

== ENCOUNTER → 2025-01-16 08:41 | Outpatient (BNVA) | payer OTHER, SELFPAY | PROVIDERS: PCP Internal Medicine; Visit Provider Nurse Practitioner Family | DX: Z01.818 Encounter for other preprocedural examination (principal); K21.9 Gastro-esophageal reflux disease without esophagitis; D12.6 Benign neoplasm of colon, unspecified | CPT/HCPCS: 99202 ==

== ENCOUNTER 2025-02-21 13:18 | Outpatient (REF) | payer OTHER, SELFPAY ==
--- NOTE | ~2025-02-21 | US_ITS ---
EXAMINATION: US LOWER EXTREMITY VENOUS (REFLUX EXAM), BILATERAL CLINICAL INFORMATION: Varicose veins of right lower extremity with inflammation. COMPARISON: None. TECHNIQUE: Color flow triplex imaging and compression Doppler was performed to evaluate both the deep and the superficial systems bilaterally. To evaluate the superficial system, the examination was performed in the upright position. Color-flow Doppler ultrasound and compression ultrasound were utilized. In addition, maneuvers were utilized to demonstrate reflux. FINDINGS: 1. DEEP VENOUS ULTRASOUND OF THE RIGHT LOWER EXTREMITY: Common Femoral Vein: Compressible, normal respiratory variation and augmented flow. Femoral Vein: Compressible, normal color flow and augmentation. Popliteal Vein: Compressible, normal augmentation. Deep Reflux: There is no evidence of reflux in the deep system in either the common femoral vein, superficial femoral or the popliteal vein. There is no evidence of a Thompson's cyst. 2. SUPERFICIAL ULTRASOUND WITH DOPPLER OF RIGHT LOWER EXTREMITY: GREAT SAPHENOUS VEIN: Saphenofemoral Junction: 0.5 cm; Reflux: 0 ms Proximal Thigh: 0.1 cm; Reflux: 0 ms Mid Thigh: 0.4 cm; Reflux: 0 ms Distal Thigh: 0.3 cm; Reflux: 0 ms At Knee: 0.2 cm; Reflux: 0 ms Proximal Calf: 0.2 cm; Reflux: 0 ms Mid Calf: 0.2 cm; Reflux: 0 ms Distal Calf: 0.2 cm; Reflux: 2328 ms DUPLICATED MEDIAL GREAT SAPHENOUS VEIN: None imaged. DUPLICATED LATERAL GREAT SAPHENOUS VEIN: None imaged. SMALL SAPHENOUS VEIN: Saphenopopliteal Junction: 0.2 cm; Reflux: 0 ms Proximal: 0.2 cm; Reflux: 0 ms Distal: 0.2 cm; Reflux: 0 ms VEIN OF GIACOMINI: Not imaged. PERFORATORS: SSV proximally: 0.1 cm, no reflux. SSV mid aspect: 0.2 cm, no reflux. Midcalf: 0.3 cm, no reflux. VARICOSITIES: None imaged. 3. DEEP VENOUS ULTRASOUND OF THE LEFT LOWER EXTREMITY: Common Femoral Vein: Compressible, normal respiratory variation and augmented flow. Femoral Vein: Compressible, normal color flow and augmentation. Popliteal Vein: Compressible, normal augmentation. Deep Reflux: There is no evidence of reflux in the deep system in either the common femoral vein, superficial femoral or the popliteal vein. There is no evidence of a Thompson's cyst. 4. SUPERFICIAL ULTRASOUND WITH DOPPLER OF LEFT LOWER EXTREMITY: GREAT SAPHENOUS VEIN: Saphenofemoral Junction: 0.6 cm; Reflux: 0 ms Proximal Thigh: 0.3 cm; Reflux: 0 ms Mid Thigh: 0.2 cm; Reflux: 0 ms Distal Thigh: 0.2 cm; Reflux: 0 ms At Knee: 0.3 cm; Reflux: 2680 ms Proximal Calf: 0.3 cm; Reflux: 2832 ms Mid Calf: 0.2 cm; Reflux: 0 ms Distal Calf: 0.2 cm; Reflux: 0 ms DUPLICATED MEDIAL GREAT SAPHENOUS VEIN: None imaged. DUPLICATED LATERAL GREAT SAPHENOUS VEIN: None imaged. SMALL SAPHENOUS VEIN: Saphenopopliteal Junction: 0.2 cm; Reflux: 0 ms Proximal: 0.2 cm; Reflux: 0 ms Distal: 0.2 cm; Reflux: 0 ms VEIN OF GIACOMINI: Not imaged. PERFORATORS: None imaged. VARICOSITIES: None imaged. US/US venous duplex LE BI IMPRESSION: RIGHT: 1. No evidence of deep venous thrombosis or significant deep venous reflux. 2. No evidence of superficial venous thrombosis. Reflux only noted in the greater saphenous vein at the level of the ankle. No additional reflux present. 3. No varicosities evident. LEFT: 1. No evidence of deep venous thrombosis or significant deep venous reflux. 2. No evidence of superficial venous thrombosis. Reflux only noted in the greater saphenous vein at the level of the knee and proximal calf. No additional reflux present. 3. No varicosities evident. Electronically signed by: Jose Angel Abdullahi MD 02/21/2025 02:20 PM EDT
== END 2025-02-21 13:19 | disposition home or self-care (01) ==
LOC: HO.US 13:18
PROVIDERS: PCP Internal Medicine; Visit Provider Physician Assistant Surgical
DX: I83.12 Varicose veins of left lower extremity with inflammation (principal); I83.11 Varicose veins of right lower extremity with inflammation
CPT/HCPCS: 93970

== ENCOUNTER → 2025-02-21 13:19 | Outpatient (BNV) | payer OTHER, SELFPAY | PROVIDERS: PCP Internal Medicine; Visit Provider Radiology Diagnostic Radiology | DX: I83.11 Varicose veins of right lower extremity with inflammation (principal) | CPT/HCPCS: 93970 ==

== ENCOUNTER 2025-03-02 08:41 | Outpatient (REF) | payer OTHER, SELFPAY ==
[2025-03-02 08:54] LABS: MANUAL DIFF FLAG NO
--- OUTSIDE RECORDS SUMMARY | 2025-03-02 09:06 | XMS_ITS | Encounter Summary ---
Author Organization [facility] Address [address] [place] [address] Care Team Providers Care Drum Sprayer Name Role Phone Physician, Pcp Unknown Primary Care Provider Laquita vailable Encounter Details Date Type Department Care Team (Late st Contact Info) Description 07/24/[address] [facility] - Main Lab [address] [facility] [place] [address] Juan Antonio Gonzalez MD [address] [facility] [address] [place] [address] Gross hematuria Social History Tobacco Use Types [...] and pathological findings. 08/02/2024 1:45 PM EDT [facility] ([facility] [[email or web address] Addendum electronically signed by Nael Bhagat MD on 08/02/2024 at 1:44 PM Final Diagnosis A. Urine, Voided, ([id number]): Negative for high grade urothelial carcinoma. Note: UroVysion testing to follow. 08/02/2024 1:45 PM EDT [facility] Clinical Information Gross hematuria R31.0 Urine Cytology/FISH (now) 08/02/2024 1:45 PM EDT [facility] Gross Description A. Urine, Voided, ([id number]): Received one ThinPrep slide for cytology and one ThinPrep slide for UroVysion FISH 08/02/2024 1:45 PM EDT [facility] Disclaimer Unless otherwise specified, all tissue is 10% NB formalin fixed and paraffin embedded. Technical pathology services provided by [facility] at [address] [place] [address] [address] [address] (CLIA #[id number]/Marlene Hernández MD, Fugitive Investigator) 08/02/2024 1:45 PM EDT [facility] Tissue Urine specimen from urethra / Unknown 07/19/2024 07/24/2024 10:28 AM EDT us Juan Antonio Gonzalez MD LAB PATHOLOGY ORDERAB LES Edited Result - Final [facility] [address] [place] [address], documented in this encounter Visit Diagnoses Diagnosis Gross hematuria documented in this encounter Care Teams Drum Sprayer Relationship Specialty Start Date End Date Physician, Pcp Unknown PCP - General 07/24/24 documented as of this encounter
--- OUTSIDE RECORDS SUMMARY | 2025-03-02 09:06 | XMS_ITS | Clinical Summary ---
Author Organization [address] [facility] Address [address] [place] [address] Phone Care Team Providers Care Care Worker Name Role Phone Physician, Pcp Unknown Primary Care Provider Laquita vailable Social History Tobacco Use Types Packs/Day Years Used Date Smoking Tobacco: Never Assessed Sex and Gender Information Value Date Recorded Sex Assigned at Not on file Legal Sex Male 10:12 AM EDT Gender Identity Not on file Sexual Orientation Not on file Plan of Treatment Health Maintenance Due Date Last Done Comments Colorectal Cancer Screening: Colonoscopy 1965 DTaP,Tdap,and Td Vaccines (1 - Tdap) 02/13/1983 Pneumococcal Vaccine: 50+ Ye ars (1 of 1 - PCV) 02/13/2014 Zoster Vaccines (1 of 2) 02/13/2014 Depression Screening 05/17/2024 Cholesterol Screening (Lipid Panel) 07/24/2024 HIV Screening 07/24/2024 Hepatitis C Screening 07/24/2024 Social Influencers of Health Screening 07/24/2024 COVID-19 Vaccine (1 - 2023-2 5 season) 2025 Influenza Vaccine (#1) 2025 RSV Immunization Adult [...] patient's age to complete this topic Insurance [facility] [place] [address] [facility] MEDICAID Care Teams Care Worker Relationship Specialty Start Date End Date Physician, Pcp Unknown PCP - General 07/24/24
[2025-03-02 09:23] LABS: Hematocrit 40.2 % (42.0-52.0); Hemoglobin 13.4 g/dl (14.0-18.0); Imm Gran Abs Auto 0.03 X10*3/uL (0.00-0.03); Imm Gran Pct Auto 0.4 % (0.0-0.4); Lymphocytes Absolute Auto 2.6 X10*3/uL (1.2-4.9); Mean Corpuscular HGB Conc 33.3 g/dl (31.0-36.0); Mean Corpuscular Hemoglobin 30.0 pg (27.0-33.0); Mean Corpuscular Volume 89.9 fL (80.0-98.0); NRBC Abs Auto 0.000 X10*3/uL (0.0-0.012); NRBC Pct Auto 0.0 /100WBC (0.0-0.2); Platelet Count 273 X10*3/uL (160-400); Red Blood Count 4.47 X10*6/uL (4.60-5.80); White Blood Count 8.3 X10*3/uL (4.8-10.8)
[2025-03-02 09:53] LABS: Appearance Urine Clear; Glucose Urine UA Negative (Negative); PH 7.5 (5.0-9.0); Specific Gravity - Urine 1.015 (1.005-1.025); UMIC TRIGGER UACC YES
[2025-03-02 10:29] LABS: Alanine Aminotransferase 43 U/L (0-40); Albumin Level 4.5 g/dL (3.5-5.0); Alkaline Phosphatase 71 U/L (39-117); Anion Gap 12 (12-20); Aspartate Amino Transferase 38 U/L (5-37); Blood Urea Nitrogen 12 mg/dL (9-16); Calcium 9.5 mg/dL (8.4-10.2); Carbon Dioxide 30 mmol/L (22-29); Chloride 101 mmol/L (96-108); Cholesterol 150 mg/dL (<200); Estimated Glomerular Filt Rate > 60; HDL Cholesterol 33 mg/dL (>40); Potassium 3.7 mmol/L (3.3-5.1); Sodium 139 mmol/L (135-145); Total Protein 7.1 g/dL (6.5-8.0); Triglycerides 184 mg/dL (<150)
[2025-03-02 14:36] LABS: Prostate Specific Antigen 3.23 ng/mL (<0.05-4.0)
== END 2025-03-02 08:42 | disposition home or self-care (01) ==
LOC: HO.LAB 08:41
PROVIDERS: PCP Internal Medicine; Visit Provider Internal Medicine
DX: Z00.00 Encounter for general adult medical examination without abnormal findings (principal); Z12.5 Encounter for screening for malignant neoplasm of prostate; N40.0 Benign prostatic hyperplasia without lower urinary tract symptoms; E78.00 Pure hypercholesterolemia, unspecified; D64.9 Anemia, unspecified; R73.01 Impaired fasting glucose; E55.9 Vitamin D deficiency, unspecified
CPT/HCPCS: 36415; 80053; 80061; 81001; 82306; 83036; 84153; 84443; 85025

== ENCOUNTER 2025-03-05 10:09 | Outpatient (AMB) | payer OTHER, SELFPAY ==
--- NOTE | 2025-03-05 10:18 | MHC.PC.OV ---
Vital Signs 03/05/25 10:19 Height 5 ft 7 in Weight 173 lb 8 oz BMI 27.2 BP 138/90 H Blood Pressure Location Lt brachial Position Sitting Pulse 95 Pulse Source Pulse Oximeter Pulse Oximetry (%) 98 Oxygen Delivery Method Room Air Intake Visit Reasons: Annual Exam Certified Drug Counselor Required: No Accompanied by: Self / Same As Patient Allergies No Known Allergies Allergy (Verified 03/05/25 10:43) Medication List - Last Reconciled 03/05/25 by Bartolo Dumont MD bisacodyl (Dulcolax (bisacodyl)) 10 mg (2 x 5 mg) PO BEDTIME doxepin 10 mg PO BEDTIME 30 days lidocaine 5% 1 patch topical DAILY PRN lisinopril 10 mg PO DAILY 90 days methadone 50 mg PO DAILY omeprazole 20 mg PO DAILY 30 days polyethylene glycol 3350 (Miralax) 238 grams PO ONCE tizanidine 4 mg PO Q8H PRN 30 days Tobacco use date assessed: 03/05/25 Dental Screening Dental Screen Date: 03/05/25 Did you have a dental visit in the last 12 months?: No Did you have a dental problem in the last 6 months where you did not have access to dental care?: No Was dental information given to patient?: Patient has dentist HPI Annual Exam HPI Details Patient comes in today for his annual physical examination States that he feels okay He denies any headaches or dizziness Denies any chest pains, no increased SOB No nausea/vomiting, no abdominal pain No change in bowel habits noted He denies any acute urinary symptoms States that he has a large dark mole on his left shinto and this was just recently biopsied by Dr. Hernandez and they are currently still waiting for his biopsy report He had his follow up labs done a few days ago - to discuss his results He is also scheduled for his screening colonoscopy with GI at [facility] later this week [facility] Medical History GERD (gastroesophageal reflux disease) Lumbar degenerative disc disease Insomnia Overweight (BMI 25.0-29.9) Right groin pain Memory loss Overweight Smoker History of hepatitis C History of substance abuse Recurrent prostate cancer (~2018) Benign essential hypertension Hx of radiation therapy History of prostate cancer Hx of irritable bowel syndrome Hepatitis Asthma Surgical History History of surgery on arm Hx of prostate biopsy Hx of right inguinal hernia repair H/O colonoscopy Family History Brother Prostate cancer Mother Diabetes Social History Housing: Apartment Alcohol intake: current Alcohol intake frequency: holidays/special occasions only Patient Tobacco Use Status: Former Tobacco user (2021) Tobacco use type: Cigarette Cigarettes Per Day: 3 e-Cigarette/Vaping Use: Never Used Second Hand Smoke Exposure: Yes Substance Use Type: Marijuana service: No Current occupational status: disabled Cognitive needs: No Hearing needs: Yes Vision needs: Yes Questionnaire PHQ-9 Over the last 2 weeks, how often have you been bothered by any of the following problems? Depression Screening Interpretation: Negative Depression Screening Done: Yes Source: Developed by Drs. Jamal Grove, Antionette Baca, Compa Diaz and colleagues, with an educational nikki from [employer]. Thrive Questionnaire Date Thrive assessed: 11/14/24 I am a: Patient What is your living situation today?: I have a steady place to live Within the past 12 months, did the food you bought not last and you didn't have the money to get more?: Never true Within the past 12 months, did you worry whether your food would run out before you got money to buy more?: Never true Do you have trouble paying for medicines?: No Do you have trouble getting transportation to medical appointments?: No Do you have trouble paying your heating and electricity bill?: No Do you have trouble taking care of your child, family member or friend?: No Do you have trouble with day-to-day activities such as bathing, preparing meals, shopping, managing finances, etc.?: No Are you currently unemployed and looking for a job?: Yes Are you interested in more education?: No Please select the resources that you would like help with: None Currently or been in a relationship where the following occur: No concerns reported THRIVE Score: 0 AUDIT C Alcohol Use Questionnaire (AUDIT-C) 1. How often do you have a drink containing alcohol?: Never 3. How often do you have six or more drinks on one occasion?: Never Total Score: 0 Score Reviewed/Action Taken: Yes MERCEDES-7 AMB Questionnaire MERCEDES-7 Date MERCEDES - 7 assessed: 11/14/24 Source: Developed by Drs. Jamal Grove, Antionette Baca, Compa Diaz and colleagues, with an educational nikki from [employer]. Review of Systems Const Denies chills, Denies fatigue, Denies fever(s), Denies headache(s), Denies malaise and Denies weakness Eyes Denies blurry vision, Denies change in vision, Denies irritation and Denies itchy eyes ENT Denies dysphagia, Denies dizziness, Denies otalgia, Denies headache(s), Denies nasal congestion, Denies neck pain, Denies odynophagia and Denies sore throat Card Denies chest pain, Denies rapid heart rate, Denies irregular heart rhythm, Denies palpitations and Denies dyspnea Resp Denies chest congestion, Denies cough, Denies dyspnea and Denies wheezing GI Denies abdominal pain, Denies bloating, Denies constipation, Denies dysphagia, Denies heartburn, Denies diarrhea, Denies nausea, Denies odynophagia and Denies vomiting Denies hematuria, Denies difficulty urinating, Denies dysuria, Denies urinary frequency and Denies urinary urgency Musc Denies back pain, Denies arthralgias, Denies joint swelling, Denies muscle weakness and Denies neck pain Skin/Breast Denies change in pigmentation, Reports lesions ((+) dark mole on the left temporal area - see HPI), Denies rash and Denies unusual bruising Neuro Denies dizziness, Denies headache(s), Denies paresthesias and Denies weakness Endo Denies fatigue and Denies palpitations Aller/Immun Denies itchy eyes and Denies wheezing Physical exam (Primary Care) Vital Signs: Last Vital Signs Pulse 95 03/05/25 10:19 BP 138/90 H 03/05/25 10:19 Pulse Ox 98 03/05/25 10:19 Oxygen Delivery Method Room Air 03/05/25 10:19 BMI result Body Mass Index 27.2 Tobacco/Smoking Status: Tobacco use Status Tobacco use date assessed 03/05/25 03/05/25 10:24 Patient Tobacco Use Status Former Tobacco user (2021) 03/05/25 10:24 Tobacco use type Cigarette 03/05/25 10:24 e-Cigarette/Vaping Use Never Used 03/05/25 10:24 Depression Screening Interpretation: Negative Thrive Assessment: Date of Thrive Assessment Date Thrive assessed 11/14/24 03/05/25 10:24 Currently or been in a relationship where the following occur: No concerns reported Const General: no acute distress, alert and awake Orientation/consciousness: patient oriented x3 HENMT Head: Yes normocephalic and Yes atraumatic Ears: external ears normal, TM's normal bilaterally and EAC's normal General nose exam: No nasal discharge present Face and sinus: Yes normal facial exam and Yes sinuses nontender Teeth and gingiva: dentition normal Throat: Yes posterior oropharynx normal and Yes tonsils normal (no TP congestion) Eyes Eyelids: Yes eyelids normal Conjunctivae: conjunctivae normal Pupils: Equal, round and reactive pupils present EOM: EOMs intact bilaterally Neck Neck: Yes no lymphadenopathy and Yes supple Thyroid: Thyroid normal Resp Auscultation: clear to auscultation bilaterally, no rales and no wheezes Cardio Rate: regular rate Rhythm: regular rhythm Heart sounds: no murmurs GI Palpation (GI): Soft to palpation, nontender and No hepatosplenomegaly present Auscultation: normal bowel sounds General: Yes no CVA tenderness Back/Spine/Pelvis Back: no CVA tenderness Thoracic/Lumbar Spine: thoracic and lumbar spine normal to inspection Sacroiliac joints: bilaterally tender to palpation Skin Lesions: no lesions Rashes: no rashes Neuro General: patient oriented x3, moves all extremities, no focal motor deficits and CN's II-XI intact bilaterally Cranial nerves: Yes Equal, round and reactive pupils present Cognition (Neuro): normal cognition Gait exam (Neuro): Normal gait present Extrem Other: (+) extensive varicose veins over the back of both proximal lower legs General: Yes no clubbing, cyanosis or edema Results Reviewed Results Reviewed: Laboratory Tests 03/02/25 03/02/25 08:48 08:52 WBC 8.3 Hgb 13.4 L Hct 40.2 L Plt Count 273 Sodium 139 Potassium 3.7 Creatinine 0.86 Estimated GFR > 60 Fasting Glucose 140 H Hemoglobin A1c % 5.7 Calcium 9.5 AST 38 H ALT 43 H Triglycerides 184 H Cholesterol 150 LDL Cholesterol, Calc 81 HDL Cholesterol 33 L Prostate Specific Ag 3.23 25-OH Vitamin D Total 32.3 TSH 1.65 Ur Specific [place] 1.015 Urine Protein Negative Urine Glucose (UA) Negative Urine Blood Trace H Urine Nitrite Negative Ur Leukocyte Esterase Negative Coding Level of Care Code Est Pt Prev Care 40-64y([address]239) Diagnoses Annual physical exam Z00.00 Benign essential hypertension I10 Lumbar degenerative disc disease M51.369 Recurrent prostate cancer C61 Elevated LFTs R79.89 Hyperpigmented skin lesion L81.9 Varicose veins of bilateral lower extremities with pain I83.813 Gastritis K29.70 History of hepatitis C Z86.19 History of substance abuse F19.11 Insomnia, unspecified type G47.00 Insomnia type: unspecified Overweight (BMI 25.0-29.9) E66.3 Assessment & Plan Assessment & Plan (1) Annual physical exam: Code(s): Z00.00 - Encounter for general adult medical examination without abnormal findings Category: Medical Plan: Results of his labs done a few days ago reviewed and discussed with patient He is scheduled for his repeat colonoscopy with Dr. Mccoy later this week (2) Benign essential hypertension: Code(s): I10 - Essential (primary) hypertension Category: Medical Plan: Reinforced low sodium diet - goal is systolic BP of 120 mm or less Continue Lisinopril 10 mg QD (3) Lumbar degenerative disc disease: Code(s): M51.369 - Other intervertebral disc degeneration, lumbar region without mention of lumbar back pain or lower extremity pain Category: Medical Plan: Patient's lumbar spine x-rays done on 05/15/2024 revealed (+) degenerative disc changes at the L5-S1 disc level. There is mild ventral spondylosis at L3-4, L4-5 and L5-S1 disc levels He was sent by pain management to physical therapy, which patient states have helped somewhat Reinforced activity and weight-lifting restrictions Continue Lidocaine 5% patches topically QD PRN and Tizanidine 4 mg Q 8 hours PRN Follow up with pain management as scheduled (4) Recurrent prostate cancer: Onset Date: ~2018 Code(s): C61 - Malignant neoplasm of prostate Category: Medical Plan: S/P external beam radiation therapy PET scan in January 2022 suggested increased uptake in the pelvic LN consistent with N1 disease TRUSP Bx done in February 2022 was negative for prostate malignancy and he was recommended to continue with observation at the time Follow up PET scan in March 2023 revealed a borderline decrease in size and uptake in the right external iliac LN with additional tiny right pelvic sidewall LN with faint uptake suggesting metastatic prostate malignancy Follow up with Urology as scheduled (5) Elevated LFTs: Code(s): R79.89 - Other specified abnormal findings of blood chemistry Category: Medical Plan: His LFTs were normal when last checked late last year but are again elevated on his recent labs Patient states that he does not drink alcohol Will continue to monitor his LFTs regularly (6) Hyperpigmented skin lesion: Code(s): L81.9 - Disorder of pigmentation, unspecified Category: Medical Plan: Patient states that he was finally seen by Dr. Hernandez and had the lesion on his left temporal area biopsied recently and is currently just waiting on the results of his biopsy Follow up with dermatology as scheduled (7) Varicose veins of bilateral lower extremities with pain: Code(s): I83.813 - Varicose veins of bilateral lower extremities with pain Category: Medical Plan: Patient was seen by vascular surgery a few months ago and sent for venous insufficiency testing Follow up with vascular surgery as scheduled (8) Gastritis: Code(s): K29.70 - Gastritis, unspecified, without bleeding Category: Medical Plan: Dietary restrictions reinforced Continue Omeprazole 20 mg QD (9) History of hepatitis C: Comment: S/P Tx with Mavyret Code(s): Z86.19 - Personal history of other infectious and parasitic diseases Category: Medical Plan: S/P Tx with Mavyret Follow up with Dr. Stahl as scheduled for continuing surveillance and management (10) History of substance abuse: Code(s): F19.11 - Other psychoactive substance abuse, in remission Category: Medical Plan: Continue Methadone 50 mg QD Follow up with the Methadone clinic as scheduled (11) Insomnia: Code(s): G47.00 - Insomnia, unspecified Category: Medical Qualifiers: Insomnia type: unspecified Qualified Code(s): G47.00 - Insomnia, unspecified Plan: Sleep hygiene reinforced Continue Doxepin 10 mg Q HS PRN (12) Overweight (BMI 25.0-29.9): Code(s): E66.3 - Overweight Category: Medical Plan: Reinforced diet/exercise as tolerated/lose weight Plan Follow up in 4 months Orders: Orders Vitamin D 25-OH Total 4 Months E55.9 - Vitamin D deficiency, unspecified Complete Blood Count Auto Diff 4 Months D64.9 - Anemia, unspecified Comprehensive [place]. Panel Fast 4 Months E78.00 - Pure hypercholesterolemia, unspecified Lipid Panel 4 Months E78.00 - Pure hypercholesterolemia, unspecified Liver Fibrosis Pnl 4 Months R79.89 - Other specified abnormal findings of blood chemistry TSH reflex Free T4 4 Months E78.00 - Pure hypercholesterolemia, unspecified UA CC w/rflx Micro + Cult 4 Months R30.0 - Dysuria
[2025-03-05 10:19] VITALS: BP 138/90; PULSE 95; O2SAT 98; BMI 27.2
--- OUTSIDE RECORDS SUMMARY | 2025-03-05 11:48 | XMS_ITS | Encounter Summary ---
Author Organization [facility] Address [address] [place] [address] Care Team Providers Care Optical Engineer Name Role Phone Unavailable Primary Care Provider Unavailabl e Encounter Details Date Type Department Care Team (Late st Contact Info) Description 08/17/2023 Scanned Document [facility] [address] [place] [id number] Pavan Gao MD [address] [facility] [place] [address] [place] [address] Social History Tobacco Use Types Packs/Day Years [...]
--- OUTSIDE RECORDS SUMMARY | 2025-03-05 11:49 | XMS_ITS | Clinical Summary ---
Author Organization [facility] Address [address] [place] [address] Care Team Providers Care Advertising Campaign Manager Name Role Phone Unavailable Primary Care Provider [...] Vaccine (1 of 2) 02/13/2014 COVID-19 Vaccine (1 - 2023-2 5 season) 2025 RSV Vaccine 50 years and old er and Patients (1 - 1-dose 75+ series) 02/13/2039 Hepatitis B Vaccines Aged Out No long er eligible based on patient's age to complete this topic
--- OUTSIDE RECORDS SUMMARY | 2025-03-05 11:49 | XMS_ITS | Encounter Summary ---
Author Organization [employer] Address [address] [place] [address] Care Team Providers Care Residential Housekeeper Name Role Phone Physician, Pcp Unknown Primary Care Provider Laquita vailable Encounter Details Date Type Department Care Team (Late st Contact Info) Description 07/24/2024 Lab Requisition [facility] - Main Lab [address] [facility] [place] [address] Juan Antonio Gonzalez MD [address] [facility] [address] [place] [address] Gross hematuria Social History Tobacco Use Types [...] and pathological findings. 08/02/2024 1:45 PM EDT [facility] ([facility]) [facility] Addendum electronically signed by Nael Bhagat MD on 08/02/2024 at 1:44 PM Final Diagnosis A. Urine, Voided, ([id number]): Negative for high grade urothelial carcinoma. Note: UroVysion testing to follow. 08/02/2024 1:45 PM EDT [facility] Clinical Information Gross hematuria R31.0 Urine Cytology/FISH (now) 08/02/2024 1:45 PM EDT [facility] Gross Description A. Urine, Voided, ([id number]): Received one ThinPrep slide for cytology and one ThinPrep slide for UroVysion FISH 08/02/2024 1:45 PM EDT [facility] Disclaimer Unless otherwise specified, all tissue is 10% NB formalin fixed and paraffin embedded. Technical pathology services provided by [facility] at [address] [place] [address] [address] [address] (CLIA #[id number]/Marlene Hernández MD, Head Of Operation And Logistics) 08/02/2024 1:45 PM EDT [facility] Tissue Urine specimen from urethra / Unknown 07/19/2024 07/24/2024 10:28 AM EDT us Juan Antonio Gonzalez MD LAB PATHOLOGY ORDERAB LES Edited Result - Final [facility] [address] [place] [address], documented in this encounter Visit Diagnoses Diagnosis Gross hematuria documented in this encounter Care Teams Residential Housekeeper Relationship Specialty Start Date End Date Physician, Pcp Unknown PCP - General 07/24/24 documented as of this encounter
--- OUTSIDE RECORDS SUMMARY | 2025-03-05 11:49 | XMS_ITS | Clinical Summary ---
Author Organization [address] [facility] Address [address] [place] [address] Phone Care Team Providers Care Music Adapter Name Role Phone Physician, Pcp Unknown Primary [...] patient's age to complete this topic Insurance [facility] [address] [facility] MEDICAID Care Teams Music Adapter Relationship Specialty Start Date End Date Physician, Pcp Unknown PCP - General 07/24/24
== END 2025-03-05 10:53 | disposition home or self-care (01) ==
LOC: HO.HMCH 10:10
PROVIDERS: PCP Internal Medicine; Visit Provider Internal Medicine
DX: Z00.00 Encounter for general adult medical examination without abnormal findings (principal); I10 Essential (primary) hypertension; M51.369 Other intervertebral disc degeneration, lumbar region without mention of lumbar back pain or lower extremity pain; C61 Malignant neoplasm of prostate; R79.89 Other specified abnormal findings of blood chemistry; L81.9 Disorder of pigmentation, unspecified; I83.813 Varicose veins of bilateral lower extremities with pain; K29.70 Gastritis, unspecified, without bleeding; Z86.19 Personal history of other infectious and parasitic diseases; F19.11 Other psychoactive substance abuse, in remission; G47.00 Insomnia, unspecified; E66.3 Overweight

== ENCOUNTER → 2025-03-05 10:09 | Outpatient (BNVA) | payer OTHER, SELFPAY | PROVIDERS: PCP Internal Medicine; Visit Provider Internal Medicine | DX: Z00.00 Encounter for general adult medical examination without abnormal findings (principal); I10 Essential (primary) hypertension; M51.369 Other intervertebral disc degeneration, lumbar region without mention of lumbar back pain or lower extremity pain; C61 Malignant neoplasm of prostate; R79.89 Other specified abnormal findings of blood chemistry; L81.9 Disorder of pigmentation, unspecified; I83.813 Varicose veins of bilateral lower extremities with pain; K29.70 Gastritis, unspecified, without bleeding; F11.20 Opioid dependence, uncomplicated; G47.00 Insomnia, unspecified; E66.3 Overweight; Z68.27 Body mass index [BMI] 27.0-27.9, adult; Z86.19 Personal history of other infectious and parasitic diseases; Z79.899 Other long term (current) drug therapy | CPT/HCPCS: 99396 ==

== ENCOUNTER 2025-03-29 14:44 | Outpatient (AMB) | payer OTHER, SELFPAY ==
--- NOTE | 2025-03-29 14:47 | A.OFFVIS_ITS ---
Intake Visit Reasons: follow up US 02/21/25 Intake Note: Patient presents for follow up US performed on 02/21/25. Patient states he has bilateral leg swelling , itching and pain. Accompanied by: Spouse Allergies No Known Allergies Allergy (Verified 03/29/25 14:50) HPI HPI follow up US 02/21/25: Details: The patient is a 60-year-old male presenting for follow-up regarding venous insufficiency. The patient reports the presence of small veins that are itchy and cause burning sensations, identified as spider veins, which are primarily cosmetic in nature. The patient experiences swelling in the feet, particularly at night, which has been a recurring issue. An ultrasound of the veins was performed, and the results were normal, indicating no need for surgical intervention at this time. The patient has been advised to continue wearing compression stockings and to elevate the legs while resting to manage symptoms. [facility] Medical History GERD (gastroesophageal reflux disease) Lumbar degenerative disc disease Insomnia Overweight (BMI 25.0-29.9) Right groin pain Memory loss Overweight Smoker History of hepatitis C History of substance abuse Recurrent prostate cancer (~2018) Benign essential hypertension Hx of radiation therapy History of prostate cancer Hx of irritable bowel syndrome Hepatitis Asthma Surgical History History of surgery on arm Hx of prostate biopsy Hx of right inguinal hernia repair H/O colonoscopy Family History Brother Prostate cancer Mother Diabetes Social History Housing: Apartment Alcohol intake: current Alcohol intake frequency: holidays/special occasions only Patient Tobacco Use Status: Former Tobacco user (2021) Tobacco use type: Cigarette Cigarettes Per Day: 3 e-Cigarette/Vaping Use: Never Used Second Hand Smoke Exposure: Yes Substance Use Type: Marijuana service: No Current occupational status: disabled Cognitive needs: No Hearing needs: Yes Vision needs: Yes Review of Systems Const All systems reviewed & are unremarkable except as noted in HPI and below Reports no additional complaints ENT Reports Normal hearing present Card Denies chest pain, Denies chest pain at rest, Denies chest pain with activity and Denies pedal edema Resp Denies cough GI Denies abdominal pain Musc Denies abnormal gait, Denies muscle cramps and Denies radiating pain into limb Skin/Breast Denies skin ulcer and Denies wounds Neuro Reports Normal hearing present and Denies abnormal gait Psych Reports no additional complaints Physical Exam Const General: cooperative, healthy appearing and comfortable Orientation/consciousness: oriented to person, oriented to place and oriented to time HEENT Head: Yes normal to inspection Neck Neck: Yes normal visual inspection Carotids: no bruits Chest Chest palpation & inspection: normal inspection of the chest Resp Effort & Inspection: normal respiratory effort and able to speak in complete sentences Auscultation: clear to auscultation bilaterally, no crackles, no rales, no rhonchi and no wheezes Cardio Rate: regular rate Rhythm: regular rhythm Heart sounds: S1 normal heart sound present and S2 normal heart sound present Bruits: no carotid bruits Peripheral pulses: Peripheral pulses 2+ throughout GI Inspection: Yes normal to inspection Skin Wounds: no wounds Hair: normal Neuro General: oriented to person, oriented to place and oriented to time Cranial nerves: Yes CN's II-XII intact bilaterally and Yes Normal hearing present Cognition (Neuro): normal cognition Motor exam (neuro): 5/5 motor strength present throughout Extrem Other: venous exam: +1 edema with multiple spider telangiectasias General: No clubbing, No cyanosis and Yes edema Psych Appearance: grossly normal Mental Status: mental status grossly normal Speech and movement: Normal speech and movement present Results Reviewed Results Reviewed: Brief summary of venous insufficiency testing is as follows: right great saphenous vein: Focally positive at ankle but vein small in caliber right small saphenous vein: negative right accessory vein: none present left great saphenous vein: Focally positive left knee but vein small in caliber left small saphenous vein: negative left accessory vein: none present Please note there is no evidence of any venous aneurysms or significant tortuosity Assessment & Plan Assessment & Plan (1) Varicose veins of both lower extremities with inflammation: Code(s): I83.11 - Varicose veins of right lower extremity with inflammation; I83.12 - Varicose veins of left lower extremity with inflammation Category: Medical Plan: In short patient is essentially negative for any significant venous in sufficiency. At the current time there is no need for surgical intervention. We did discuss routine conservative measures including compression, elevation and exercise. The patient will follow up with us on an as-needed basis. Thank you for allowing us to assist in his care. Coding Level of Care Code Est Pt Level 4 (09985) Diagnoses Varicose veins of both lower extremities with inflammation I83.11; I83.12
--- OUTSIDE RECORDS SUMMARY | 2025-03-29 18:02 | XMS_ITS | Encounter Summary ---
Author Organization [employer] Address [address] [place] [address] Care Team Providers Care Cordwainer Name Role Phone Physician, Pcp Unknown Primary Care Provider Laquita vailable Encounter Details Date Type Department Care Team (Late st Contact Info) Description 07/24/2024 Lab Requisition [facility] - Main Lab [address] [facility] [place] [address] Juan Antonio Gonzalez MD [address] [facility] [address] [place] [address] Gross hematuria Social History Tobacco Use Types [...] and pathological findings. 08/02/2024 1:45 PM EDT [facility] ([facility]) [facility] Addendum electronically signed by Nael Bhagat MD on 08/02/2024 at 1:44 PM Final Diagnosis A. Urine, Voided, ([id number]): Negative for high grade urothelial carcinoma. Note: UroVysion testing to follow. 08/02/2024 1:45 PM EDT [facility] Clinical Information Gross hematuria R31.0 Urine Cytology/FISH (now) 08/02/2024 1:45 PM EDT [facility] Gross Description A. Urine, Voided, ([id number]): Received one ThinPrep slide for cytology and one ThinPrep slide for UroVysion FISH 08/02/2024 1:45 PM EDT [facility] Disclaimer Unless otherwise specified, all tissue is 10% NB formalin fixed and paraffin embedded. Technical pathology services provided by [facility] at [address] [place] [address] [address], [place] [address] (CLIA #[id number]/Marlene Hernández MD, Painting Technician) 08/02/2024 1:45 PM EDT [facility] Tissue Urine specimen from urethra / Unknown 07/19/2024 07/24/2024 10:28 AM EDT us Juan Antonio Gonzalez MD LAB PATHOLOGY ORDERAB LES Edited Result - Final [facility] [address] [place] [address], documented in this encounter Visit Diagnoses Diagnosis Gross hematuria documented in this encounter Care Teams Cordwainer Relationship Specialty Start Date End Date Physician, Pcp Unknown PCP - General 07/24/24 documented as of this encounter
--- OUTSIDE RECORDS SUMMARY | 2025-03-29 18:02 | XMS_ITS | Clinical Summary ---
Author Organization [facility] Address [address] [place] [address] Care Team Providers Care Customer Development Manager Name Role Phone Unavailable Primary Care [...]
--- OUTSIDE RECORDS SUMMARY | 2025-03-29 18:02 | XMS_ITS | Encounter Summary ---
Author Organization [facility] Address [address] [place] [address] Care Team Providers Care Technical Manager [employer] Name Role Phone Unavailable Primary Care Provider Unavailabl e Encounter Details Date Type Department Care Team (Late st Contact Info) Description 08/17/2023 Scanned Document [facility] Laboratory [address] [place] [id number] Pavan Gao MD [address] [facility] [address] [place] [address] Social History Tobacco Use Types Packs/Day Years [...]
--- OUTSIDE RECORDS SUMMARY | 2025-03-29 18:02 | XMS_ITS | Clinical Summary ---
Author Organization [address] [facility] Address [address] [place] [address] Phone Care Team Providers Care Factory Focus Technician Name Role Phone Physician, Pcp Unknown Primary [...] patient's age to complete this topic Insurance [facility] [address] [facility] MEDICAID Care Teams Factory Focus Technician Relationship Specialty Start Date End Date Physician, Pcp Unknown PCP - General 07/24/24
== END 2025-03-29 15:31 | disposition home or self-care (01) ==
LOC: HO.HVS 14:45
PROVIDERS: PCP Internal Medicine; Visit Provider Surgery Vascular Surgery
DX: I83.11 Varicose veins of right lower extremity with inflammation (principal); I83.12 Varicose veins of left lower extremity with inflammation
CPT/HCPCS: 99214

== ENCOUNTER → 2025-03-29 14:44 | Outpatient (BNVA) | payer OTHER, SELFPAY | PROVIDERS: PCP Internal Medicine; Visit Provider Surgery Vascular Surgery | DX: I83.11 Varicose veins of right lower extremity with inflammation (principal); I83.12 Varicose veins of left lower extremity with inflammation | CPT/HCPCS: 99212 ==